=== PATIENT | male | born 1965 | race Caucasian/White ===

== ENCOUNTER 2021-02-17 11:21 | Outpatient (REF) | payer OTHER, SELFPAY ==
[2021-02-17 12:06] LABS: MANUAL DIFF FLAG NO
[2021-02-17 12:14] LABS: Basophils Percent Auto 0.5 % (0-2); Eosinophils Absolute Auto 0.1 X10*3/uL (0.0-0.4); Eosinophils Percent Auto 1.6 % (0-4); Hematocrit 49.3 % (42-52); Hemoglobin 16.2 g/dl (14.0-18.0); Imm Gran Abs Auto 0.03 X10*3/uL (0.00-0.03); Imm Gran Pct Auto 0.4 % (0.0-0.4); Lymphocytes Absolute Auto 0.5 X10*3/uL (1.2-4.9); Lymphocytes Percent Auto 5.5 % (20-40); Mean Corpuscular HGB Conc 32.9 g/dl (31.0-36.0); Mean Corpuscular Hemoglobin 32.1 pg (27.0-33.0); Mean Corpuscular Volume 97.8 fL (80-98); Mean Platelet Volume 10.8 fL (9.4-12.4); Monocytes Absolute Auto 0.5 X10*3/uL (0.1-1.2); Monocytes Percent Auto 5.8 % (2-11); Neutrophils Absolute Auto 7.3 X10*3/uL (2.0-8.3); Neutrophils Percent Auto 86.2 % (45-73); Platelet Count 180 X10*3/uL (160-400); Red Blood Count 5.04 X10*6/uL (4.60-5.80); Red Cell Distribution Width 14.1 % (11.0-16.0); White Blood Count 8.5 X10*3/uL (4.8-10.8)
[2021-02-17 12:59] LABS: Alanine Aminotransferase 34 U/L (0-40); Albumin Level 4.3 g/dL (3.5-5.0); Alkaline Phosphatase 53 U/L (39-117); Anion Gap 13 (12-20); Aspartate Amino Transferase 28 U/L (5-37); Bilirubin Total 0.7 mg/dL (0.0-1.0); Blood Urea Nitrogen 23 mg/dL (9-16); Calcium 9.7 mg/dL (8.4-10.2); Carbon Dioxide 26 mmol/L (22-29); Chloride 104 mmol/L (96-108); Cholesterol 226 mg/dL; Estimated Glomerular Filt Rate 51; Glucose Fasting 136 mg/dL (60-99); HDL Cholesterol 38 mg/dL; Potassium 5.1 mmol/L (3.3-5.1); Sodium 138 mmol/L (135-145); Total Protein 6.6 g/dL (6.5-8.0); Triglycerides 668 mg/dL
[2021-02-17 16:06] LABS: TSH reflex Free T4 0.43 uIU/mL (0.32-4.0); Vitamin D 25-OH Total 22.4 ng/mL (>30)
[2021-02-17 20:51] LABS: Prostate Specific Antigen 0.49 ng/mL (<0.05-4.0)
== END 2021-02-17 11:22 | disposition home or self-care (01) ==
LOC: HO.LAB 11:21
PROVIDERS: PCP Internal Medicine; Visit Provider Internal Medicine
DX: Z00.00 Encounter for general adult medical examination without abnormal findings (principal); Z12.5 Encounter for screening for malignant neoplasm of prostate; I13.0 Hypertensive heart and chronic kidney disease with heart failure and stage 1 through stage 4 chronic kidney disease, or unspecified chronic kidney disease; N18.30 Chronic kidney disease, stage 3 unspecified; I50.9 Heart failure, unspecified; E78.00 Pure hypercholesterolemia, unspecified; E66.9 Obesity, unspecified; E55.9 Vitamin D deficiency, unspecified
CPT/HCPCS: 36415; 80053; 80061; 82306; 84153; 84443; 85025

== ENCOUNTER 2021-07-12 14:35 | Outpatient (REF) | payer OTHER, SELFPAY ==
--- NOTE | ~2021-07-12 | US_ITS ---
EXAMINATION: US VENOUS ULTRASOUND WITH DOPPLER LOWER EXTREMITY, RIGHT CLINICAL INFORMATION: Right leg swelling and redness. COMPARISON: Ultrasound bilateral lower extremity 06/12/2015. TECHNIQUE: Ultrasound of the deep veins is performed from the hip to the calf with compression sonography and color and pulse Doppler assessment. Spectral analysis with color-flow imaging is performed. FINDINGS: There is echogenic chronic thrombus in the right superficial femoral vein distal segment with peripheral color flow seen. The findings are suggestive of chronic DVT. The popliteal vein, posterior tibial and peroneal veins are patent. There is no significant popliteal fossa cyst. If the patient's symptoms persist, followup ultrasound in 5 days 7 days might be of value to exclude proximal propagation from a non-visualized calf vein. US/US venous duplex LE RT IMPRESSION: Chronic DVT right superficial femoral vein distal segment. Patient was apparently treated for DVT 1 year ago and is of blood thinners. Rest of the right lower extremity veins are patent.
== END 2021-07-12 14:36 | disposition home or self-care (01) ==
LOC: HO.US 14:35
PROVIDERS: PCP Internal Medicine; Visit Provider Nurse Practitioner Acute Care
DX: M79.89 Other specified soft tissue disorders (principal)
CPT/HCPCS: 93971

== ENCOUNTER 2023-04-14 09:29 | Outpatient (AMB) | payer OTHER, SELFPAY ==
[2023-04-14 09:31] VITALS: BP 118/70; PULSE 73; O2SAT 99; BMI 31.5
--- NOTE | 2023-04-14 09:31 | MHC.PC.OV ---
Vital Signs 04/14/23 09:31 Height 6 ft Weight 232 lb 6 oz BMI 31.5 BP 118/70 Blood Pressure Location Lt brachial Position Sitting Pulse 73 Pulse Source Pulse Oximeter Pulse Oximetry (%) 99 Oxygen Delivery Method Room Air Intake Visit Reasons: discuss medication Inspector Boiler Required: No Accompanied by: Self / Same As Patient Allergies No Known Allergies Allergy (Verified 04/14/23 10:28) Medication List - Last Reconciled 04/14/23 by Ming Hawkins MD alendronate 70 mg PO QWEEK apixaban 5 mg PO BID 30 days atorvastatin 10 mg PO DAILY 90 days calcium carbonate 1,000 mg PO DAILY cyclobenzaprine 10 mg PO BEDTIME doxycycline hyclate 100 mg PO BID empagliflozin (Jardiance) 10 mg PO DAILY empagliflozin (Jardiance) 10 mg PO DAILY folic acid 1 mg PO DAILY gabapentin ER 1,800 mg PO BEDTIME lorazepam 1 mg (2 x 0.5 mg) PO TID PRN 15 days methotrexate sodium 20 mg PO QWEEK metoprolol succinate ER 25 mg PO DAILY oxycodone 5 mg PO TID PRN pantoprazole 40 mg PO DAILY prednisone 10 mg PO DAILY spironolactone 25 mg PO DAILY tocilizumab mg subcut tocilizumab (Actemra) 162 mg subcut QWEEK tramadol 50 mg PO Q6H PRN Tobacco use date assessed: 04/14/23 Dental Screening Dental Screen Date: 04/14/23 Did you have a dental visit in the last 12 months?: No Did you have a dental problem in the last 6 months where you did not have access to dental care?: No Was dental information given to patient?: Patient has dentist HPI discuss medication HPI Details Patient comes in today for his follow up visit - was last seen in February 2022 States that he had an appointment scheduled to see me last month but he was called up and notified that I was not in the office then and he had to reschedule his appt; patient also missed his appt back in June 2022 and did not get rescheduled until recently Thinks that he tweaked his lower back a couple of months ago and was experiencing increased pain over his lower back that he thinks was due to a pulled muscle States that his lower back symptoms gradually subsided over a month but then he thinks that he may have hurt his lower back again recently while playing golf as he is still experiencing on and off lower back pain and spasms Notes that his left thigh and proximal leg feels numb at times lately, mostly on the lateral side; he has also noticed some burning sensation over the medial side of his thigh recently and that the symptoms seem to come on more often with prolonged standing Has noticed that they gradually subside when he sits down and keep his leg elevated for a while States that he has been having trouble getting his Eliquis and Lorazepam refilled lately - is not sure why he is having problems getting his Eliquis but was told by his pharmacy that his Lorazepam 1 mg has been back-ordered for a while now and if he wants to get it refilled, he has to talk to his PCP about getting this written differently Relates that he was also taken off his Torsemide by his electrical systems drafter a few months ago and started on Jardiance and states that he has been doing much better since and his chronic lower extremity swelling have also improved significantly lately He denies any headaches or dizziness Denies any chest pains, no SOB No nausea/vomiting, no abdominal pain No change in bowel habits noted States that he had some labs done (ordered by his web production manager) a few days ago COUNTS INCLUDE 234 BEDS AT [facility] Medical History Anxiety Benign essential hypertension Chronic kidney disease (CKD), stage III (moderate) Congestive heart failure (CHF) COPD (chronic obstructive pulmonary disease) Deep vein thrombosis (DVT) of right lower extremity GERD without esophagitis Lumbar degenerative disc disease Mixed hyperlipidemia Obesity (BMI 30-39.9) Pneumonia Pure hypercholesterolemia Rheumatoid arthritis Surgical History History of lumbar fusion History of pericardiectomy History of surgery on arm History of total hip arthroplasty History of vasectomy Family History Father No problems noted. Mother Diabetes Rheumatoid arthritis Other Mental health problem Social History Housing: House Alcohol intake: current Alcohol intake frequency: holidays/special occasions only Alcohol type: beer Patient Tobacco Use Status: Former Tobacco user Quit Date: July 05, 2020 Tobacco use type: Cigarette e-Cigarette/Vaping Use: Never Used Second Hand Smoke Exposure: No service: No Current occupational status: disabled Cognitive needs: Yes (cane) Hearing needs: No Vision needs: Yes (Reading glasses) Questionnaire PHQ-9 Over the last 2 weeks, how often have you been bothered by any of the following problems? 1. Little interest or pleasure in doing things: not at all 2. Feeling down, depressed, or hopeless: not at all 3. Trouble falling or staying asleep, or sleeping too much: not at all 4. Feeling tired or having little energy: not at all 5. Poor appetite or overeating: not at all 6. Feeling bad about yourself - or that you are a failure or have let yourself or your family down: not at all 7. Trouble concentrating on things, such as reading the newspaper or watching television: not at all 8. Moving or speaking so slowly that other people could have noticed. Or the opposite - being so fidgety or restless that you have been moving around a lot more than usual: not at all 9. Thoughts that you would be better off or of hurting yourself in some way: not at all Total score: 0 Depression Screening Interpretation: Negative 26056 - PHQ-9 Billing: Yes Source: Developed by Drs. Hector Beatty, Xin Valencia, Vik Fabian and colleagues, with an educational homa from [employer]. Thrive Questionnaire Date Thrive assessed: 04/14/23 I am a: Patient What is your living situation today?: I have a steady place to live Within the past 12 months, did the food you bought not last and you didn't have the money to get more?: Never true Within the past 12 months, did you worry whether your food would run out before you got money to buy more?: Never true Do you have trouble paying for medicines?: No Do you have trouble getting transportation to medical appointments?: No Do you have trouble paying your heating and electricity bill?: No Do you have trouble taking care of your child, family member or friend?: No Do you have trouble with day-to-day activities such as bathing, preparing meals, shopping, managing finances, etc.?: No Are you currently unemployed and looking for a job?: No Are you interested in more education?: No Please select the resources that you would like help with: None Currently or been in a relationship where the following occur: no concerns reported AUDIT C Alcohol Use Questionnaire (AUDIT-C) 1. How often do you have a drink containing alcohol?: Monthly or less 2. How many drinks containing alcohol do you have on a typical day when you are drinking?: 1 or 2 3. How often do you have six or more drinks on one occasion?: Never Total Score: 1 Score Reviewed/Action Taken: Yes RONEN-7 AMB Questionnaire RONEN-7 Date RONEN - 7 assessed: 04/14/23 Feeling nervous, anxious, or on edge: 0 = Not at all Not being able to stop or control worryin = Not at all Worrying too much about different things: 0 = Not at all Trouble relaxin = Not at all Being so restless that it is hard to sit still: 0 = Not at all Becoming easily annoyed or irritable: 0 = Not at all Feeling afraid as if something awful might happen: 0 = Not at all Total RONEN-7 score (0-4 normal; 5-9 mild; 10-14 moderate; 15-21 severe): 0 Source: Developed by Drs. Hector Beatty, Xin Valencia, Vik Fabian and colleagues, with an educational homa from [employer]. Review of Systems Const Denies chills, Denies fatigue, Denies fever(s) and Denies headache(s) ENT Denies dysphagia, Denies dizziness, Denies otalgia, Denies headache(s), Denies neck pain, Denies odynophagia and Denies sore throat Card Denies chest pain, Denies palpitations and Denies dyspnea Resp Denies cough, Denies dyspnea and Denies wheezing GI Denies abdominal pain, Denies constipation, Denies dysphagia, Denies heartburn, Denies diarrhea, Denies nausea, Denies odynophagia and Denies vomiting Denies dysuria, Denies nocturia and Denies urinary frequency Musc Reports back pain (on and off, over the lower back lately), Denies arthralgias, Denies joint swelling, Denies muscle weakness, Denies neck pain and Reports tingling (over the left thigh and proximal left leg - see HPI) Skin/Breast Denies lesions, Denies rash, Denies sores, Denies unusual bruising and Denies wounds (previous right lower leg wounds have healed up completely) Neuro Denies dizziness, Denies headache(s) and Reports tingling (over the left thigh and proximal left leg - see HPI) Endo Denies fatigue and Denies palpitations Aller/Immun Denies wheezing Physical exam (Primary Care) Vital Signs: Last Vital Signs Pulse 73 04/14/23 09:31 BP 118/70 04/14/23 09:31 Pulse Ox 99 04/14/23 09:31 Oxygen Delivery Method Room Air 04/14/23 09:31 BMI result Body Mass Index 31.5 Tobacco/Smoking Status: Tobacco use Status Tobacco use date assessed 04/14/23 04/14/23 09:33 Patient Tobacco Use Status Former Tobacco user 04/14/23 09:33 Tobacco use type Cigarette 04/14/23 09:33 e-Cigarette/Vaping Use Never Used 04/14/23 09:33 PHQ-9: PHQ-9 Score PHQ-9: Total score 0 04/14/23 09:52 Depression Screening Interpretation: Negative Thrive Assessment: Date of Thrive Assessment Date Thrive assessed 04/14/23 04/14/23 09:33 Currently or been in a relationship where the following occur: no concerns reported Const General: no acute distress and alert HENMT Ears: TM's normal bilaterally and EAC's normal Throat: Yes posterior oropharynx normal and Yes tonsils normal (no TP congestion) Neck Neck: Yes no lymphadenopathy and Yes supple Thyroid: Thyroid normal Resp Auscultation: clear to auscultation bilaterally, no rales and no wheezes Cardio Rate: regular rate Rhythm: regular rhythm Heart sounds: no murmurs GI Palpation (GI): Soft to palpation and nontender Auscultation: normal bowel sounds Back/Spine/Pelvis Thoracic/Lumbar Spine: paraspinal muscle tenderness on the left in the mid lumbar and in the lower lumbar Skin Lesions: no lesions Rashes: no rashes Extrem General: Yes no clubbing, cyanosis or edema Assessment and Plan Assessment & Plan (1) Mixed hyperlipidemia: Code(s): E78.2 - Mixed hyperlipidemia Plan: Results of his labs done at [facility] a few days ago reviewed and discussed with patient but advised that these did not include his cholesterol levels He is reminded again that his serum triglyceride level on his labs done back in January 2021 was very high at over 650 mg/dl and he has not had the opportunity to get this rechecked yet Will have him try and get his fasting lipids and a few other labs rechecked OLY Reinforced low cholesterol diet Continue Atorvastatin 10 mg QD for now (2) Benign essential hypertension: Code(s): I10 - Essential (primary) hypertension Plan: Reinforced low sodium diet Continue Metoprolol ER 25 mg QD (3) Congestive heart failure (CHF): Comment: 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 Code(s): I50.9 - Heart failure, unspecified Qualifiers: Heart failure type: unspecified Heart failure chronicity: chronic Qualified Code(s): I50.9 - Heart failure, unspecified Plan: He used to take Torsemide 20 mg QD but states that he was taken off this by cardiology a few months ago and started on Jardiance 10 mg QD instead and he has been doing a lot better since Reinforced fluid restriction Follow up with cardiology as scheduled (4) COPD (chronic obstructive pulmonary disease): Code(s): J44.9 - Chronic obstructive pulmonary disease, unspecified Qualifiers: COPD type: unspecified COPD Qualified Code(s): J44.9 - Chronic obstructive pulmonary disease, unspecified Plan: Stable - continue Albuterol HFA 2 puffs 4 times a day as needed (5) Rheumatoid arthritis: Code(s): M06.9 - Rheumatoid arthritis, unspecified Qualifiers: Rheumatoid arthritis location: unspecified site Rheumatoid factor presence: with rheumatoid factor Qualified Code(s): M05.9 - Rheumatoid arthritis with rheumatoid factor, unspecified Plan: Continue Actemra 162 mg/0.9 ml SQ once a week, Methotrexate 2.5 mg 8 tablets once a week and Prednisone 10 mg QD Follow up with rheumatology as scheduled - goes to [facility] [place] Continue Gabapentin ER 1800 mg Q HS, Tramadol 50 mg q 6 hours PRN and Cyclobenzaprine 10 mg Q HS for pain (6) Lumbar degenerative disc disease: Code(s): M51.36 - Other intervertebral disc degeneration, lumbar region Plan: Follow up with [facility] as scheduled States that he's had a couple of injections into his lower back over the past year or so but the injections have not helped at all More recently, thinks that he may have strained his lower back while playing golf Have advised patient to call if his low back pain continues to get worse (7) Deep vein thrombosis (DVT) of right lower extremity: Code(s): I82.401 - Acute embolism and thrombosis of unspecified deep veins of right lower extremity Qualifiers: Affected thrombotic vein of extremity: unspecified vein of extremity Chronicity: acute Qualified Code(s): I82.401 - Acute embolism and thrombosis of unspecified deep veins of right lower extremity Plan: Was previously taken OFF Eliquis after 6 months of Rx last year but his DVT has since recurred and he was started back on Eliquis 5 mg BID indefinitiely although he has been having problems getting this refilled at his pharmacy lately, for unclear reasons Will send his Rx in electronically - patient instructed to let us know OLY if he still has trouble getting it as his insurance may be requesting for a PA again to be redone Follow up with hematology (Dr. Ramos) at [facility] as scheduled (8) Chronic kidney disease (CKD), stage III (moderate): Code(s): N18.30 - Chronic kidney disease, stage 3 unspecified Qualifiers: Chronic kidney disease stage 3 subtype: unspecified whether 3a or 3b Qualified Code(s): N18.30 - Chronic kidney disease, stage 3 unspecified Plan: Stable - follow up with nephrology as scheduled Was started on Jardiance by cardiology a few months ago, which should also help with patient's renal function (9) GERD without esophagitis: Code(s): K21.9 - Gastro-esophageal reflux disease without esophagitis Plan: Dietary restrictions reinforced Continue Pantoprazole 40 mg QD (10) Anxiety: Code(s): F41.9 - Anxiety disorder, unspecified Plan: Continue Lorazepam 1 mg TID PRN - will try to send in Rx for 0.5 mg to take 2 tablets TID PRN until his 1 mg tablets are back in stock (11) Obesity (BMI 30-39.9): Code(s): E66.9 - Obesity, unspecified Plan: Reinforced diet/exercise as tolerated/lose weight although his activity tolerance is limited due to his multiple comorbidities States that he has been able to lose a lot of weight since he was seen last year Plan Follow up in August 2023 Orders: Orders Comprehensive [place]. Panel Fast Today E78.00 - Pure hypercholesterolemia, unspecified Lipid Panel Today E78.00 - Pure hypercholesterolemia, unspecified TSH reflex Free T4 Today E78.00 - Pure hypercholesterolemia, unspecified Vitamin D 25-OH Total Today E55.9 - Vitamin D deficiency, unspecified UA CC w/rflx Micro + Cult Today R30.0 - Dysuria Medications: Changed From apixaban 5 mg PO BID 60 tabs 0RF To apixaban 5 mg PO BID 30 days 60 tabs 5RF From lorazepam take ONLY NEEDED 1 mg PO TID 30 days PRN 90 tabs 0RF anxiety To lorazepam take ONLY NEEDED 1 mg (2 x 0.5 mg) PO TID 15 days PRN 90 tabs 0RF anxiety Coding Level of Care Code Est Pt Level 4 (23506) Diagnoses Mixed hyperlipidemia E78.2 Benign essential hypertension I10 Congestive heart failure (CHF) I50.9 Heart failure type: unspecified Heart failure chronicity: chronic COPD (chronic obstructive pulmonary disease) J44.9 COPD type: unspecified COPD Rheumatoid arthritis M05.9 Rheumatoid arthritis location: unspecified site Rheumatoid factor presence: with rheumatoid factor Lumbar degenerative disc disease M51.36 Deep vein thrombosis (DVT) of right lower extremity I82.401 Affected thrombotic vein of extremity: unspecified vein of extremity Chronicity: acute Chronic kidney disease (CKD), stage III (moderate) N18.30 Chronic kidney disease stage 3 subtype: unspecified whether 3a or 3b GERD without esophagitis K21.9 Anxiety F41.9 Obesity (BMI 30-39.9) E66.9
== END 2023-04-14 10:31 | disposition home or self-care (01) ==
PROVIDERS: PCP Internal Medicine; Visit Provider Internal Medicine
DX: I13.0 Hypertensive heart and chronic kidney disease with heart failure and stage 1 through stage 4 chronic kidney disease, or unspecified chronic kidney disease (principal); J44.9 Chronic obstructive pulmonary disease, unspecified; N18.30 Chronic kidney disease, stage 3 unspecified; I50.9 Heart failure, unspecified; M05.9 Rheumatoid arthritis with rheumatoid factor, unspecified; E78.2 Mixed hyperlipidemia; M51.36 Other intervertebral disc degeneration, lumbar region; I82.401 Acute embolism and thrombosis of unspecified deep veins of right lower extremity; K21.9 Gastro-esophageal reflux disease without esophagitis; F41.9 Anxiety disorder, unspecified; E66.9 Obesity, unspecified
CPT/HCPCS: 99214

== ENCOUNTER 2023-08-07 23:59 | Outpatient (BNV) | payer OTHER, SELFPAY | END 2023-08-08 23:59 | PROVIDERS: PCP Internal Medicine; Visit Provider Internal Medicine | DX: I47.10 Supraventricular tachycardia, unspecified (principal); I50.33 Acute on chronic diastolic (congestive) heart failure | CPT/HCPCS: 99222 ==

== ENCOUNTER 2023-09-12 10:10 | Outpatient (AMB) | payer OTHER, SELFPAY ==
[2023-09-12 10:14] VITALS: BP 112/80; PULSE 59; O2SAT 98; BMI 32.4
--- NOTE | 2023-09-12 10:14 | MHC.PC.OV ---
Vital Signs 09/12/23 10:14 Height 6 ft Weight 239 lb 4 oz BMI 32.4 BP 112/80 Blood Pressure Location Lt brachial Position Sitting Pulse 59 Pulse Source Pulse Oximeter Pulse Oximetry (%) 98 Oxygen Delivery Method Room Air Intake Visit Reasons: pe Rn Critical Care Required: No Accompanied by: Self / Same As Patient Allergies No Known Allergies Allergy (Verified 09/12/23 10:32) Medication List - Last Reconciled 09/12/23 by Ming Hawkins MD amiodarone 200 mg PO DAILY apixaban 5 mg PO BID 30 days atorvastatin 10 mg PO DAILY 90 days calcium carbonate 1,000 mg PO DAILY cholecalciferol (vitamin D3) (Vitamin D3) 25 mcg PO DAILY cyclobenzaprine 10 mg PO BEDTIME empagliflozin (Jardiance) 10 mg PO DAILY folic acid 1 mg PO DAILY gabapentin ER 1,200 mg PO BEDTIME lorazepam 1 mg (2 x 0.5 mg) PO TID PRN 15 days methotrexate sodium 20 mg PO QWEEK metoprolol succinate ER 25 mg PO DAILY pantoprazole 40 mg PO DAILY prednisone 10 mg PO DAILY spironolactone 25 mg PO DAILY tiotropium bromide 2.5 mcg/actuation (Spiriva Respimat) 1 puff inhalation BID tocilizumab (Actemra) 162 mg subcut QWEEK tramadol 50 mg PO Q6H PRN Tobacco use date assessed: 09/12/23 Dental Screening Dental Screen Date: 09/12/23 Did you have a dental visit in the last 12 months?: No Did you have a dental problem in the last 6 months where you did not have access to dental care?: No Was dental information given to patient?: No HPI pe HPI Details Patient comes in today for his annual physical examination States that he feels okay He was admitted to [facility] back in April 2023 for pneumonia and was reportedly diagnosed with atrial flutter / SVT when he developed palpitations / tachycardia while he was in the hospital He was started on Amiodarone, which he is still currently on, and is following up with cardiology regularly for this - states that they are currently still doing further work ups on his regarding this issue He denies any headaches or dizziness Denies any chest pains, no SOB No nausea/vomiting, no abdominal pain No change in bowel habits noted He denies any acute urinary symptoms He has NEVER had a screening colonoscopy done in the past, by choice [facility] Medical History Atrial flutter Mixed hyperlipidemia Lumbar degenerative disc disease Pneumonia Anxiety Pure hypercholesterolemia Benign essential hypertension GERD without esophagitis Congestive heart failure (CHF) COPD (chronic obstructive pulmonary disease) Rheumatoid arthritis Chronic kidney disease (CKD), stage III (moderate) Obesity (BMI 30-39.9) Deep vein thrombosis (DVT) of right lower extremity Surgical History History of surgery on arm History of pericardiectomy History of vasectomy History of lumbar fusion History of total hip arthroplasty Family History Father No problems noted. Mother Diabetes Rheumatoid arthritis Other Mental health problem Social History Housing: House Alcohol intake: current Alcohol intake frequency: holidays/special occasions only Alcohol type: beer Patient Tobacco Use Status: Former Tobacco user Quit Date: July 05, 2020 Tobacco use type: Cigarette e-Cigarette/Vaping Use: Never Used Second Hand Smoke Exposure: No service: No Current occupational status: disabled Cognitive needs: Yes (cane) Hearing needs: No Vision needs: Yes (Reading glasses) Questionnaire PHQ-9 Over the last 2 weeks, how often have you been bothered by any of the following problems? 1. Little interest or pleasure in doing things: not at all 2. Feeling down, depressed, or hopeless: not at all 3. Trouble falling or staying asleep, or sleeping too much: not at all 4. Feeling tired or having little energy: not at all 5. Poor appetite or overeating: not at all 6. Feeling bad about yourself - or that you are a failure or have let yourself or your family down: not at all 7. Trouble concentrating on things, such as reading the newspaper or watching television: not at all 8. Moving or speaking so slowly that other people could have noticed. Or the opposite - being so fidgety or restless that you have been moving around a lot more than usual: not at all 9. Thoughts that you would be better off or of hurting yourself in some way: not at all Total score: 0 Depression Screening Interpretation: Negative Depression Screening Done: Yes 62130 - PHQ-9 Billing: Yes Source: Developed by Drs. Hector Beatty, Xin Valencia, Vik Fbaian and colleagues, with an educational homa from [employer]. Thrive Questionnaire Date Thrive assessed: 09/12/23 I am a: Patient What is your living situation today?: I have a steady place to live Within the past 12 months, did the food you bought not last and you didn't have the money to get more?: Never true Within the past 12 months, did you worry whether your food would run out before you got money to buy more?: Never true Do you have trouble paying for medicines?: No Do you have trouble getting transportation to medical appointments?: No Do you have trouble paying your heating and electricity bill?: No Do you have trouble taking care of your child, family member or friend?: No Do you have trouble with day-to-day activities such as bathing, preparing meals, shopping, managing finances, etc.?: No Are you currently unemployed and looking for a job?: No Are you interested in more education?: No Please select the resources that you would like help with: None Currently or been in a relationship where the following occur: no concerns reported THRIVE Score: 0 AUDIT C Alcohol Use Questionnaire (AUDIT-C) 1. How often do you have a drink containing alcohol?: Monthly or less 2. How many drinks containing alcohol do you have on a typical day when you are drinking?: 1 or 2 3. How often do you have six or more drinks on one occasion?: Never Total Score: 1 Score Reviewed/Action Taken: Yes RONEN-7 AMB Questionnaire RONEN-7 Date RONEN - 7 assessed: 09/12/23 Feeling nervous, anxious, or on edge: 1 = Several days Not being able to stop or control worryin = Several days Worrying too much about different things: 1 = Several days Trouble relaxin = Not at all Being so restless that it is hard to sit still: 0 = Not at all Becoming easily annoyed or irritable: 0 = Not at all Feeling afraid as if something awful might happen: 0 = Not at all Total RONEN-7 score (0-4 normal; 5-9 mild; 10-14 moderate; 15-21 severe): 3 Source: Developed by Drs. Hector Beatty, Xin Valencia, Vik Fabian and colleagues, with an educational homa from [employer]. Review of Systems Const Denies chills, Denies fatigue, Denies fever(s), Denies headache(s), Denies malaise and Denies weakness Eyes Denies blurry vision, Denies change in vision, Denies irritation and Denies itchy eyes ENT Denies dysphagia, Denies dizziness, Denies otalgia, Denies headache(s), Denies nasal congestion, Denies neck pain, Denies odynophagia and Denies sore throat Card Denies chest pain, Denies rapid heart rate, Denies irregular heart rhythm, Denies palpitations and Denies dyspnea Resp Denies chest congestion, Denies cough, Denies dyspnea and Denies wheezing GI Denies abdominal pain, Denies bloating, Denies constipation, Denies dysphagia, Denies heartburn, Denies diarrhea, Denies nausea, Denies odynophagia and Denies vomiting Denies hematuria, Denies difficulty urinating, Denies dysuria, Denies urinary frequency and Denies urinary urgency Musc Denies back pain, Denies arthralgias, Denies joint swelling, Denies muscle weakness and Denies neck pain Skin/Breast Denies change in pigmentation, Denies lesions, Denies rash and Denies unusual bruising Neuro Denies dizziness, Denies headache(s), Denies paresthesias and Denies weakness Endo Denies fatigue and Denies palpitations Aller/Immun Denies itchy eyes and Denies wheezing Physical exam (Primary Care) Vital Signs: Last Vital Signs Pulse 59 09/12/23 10:14 BP 112/80 09/12/23 10:14 Pulse Ox 98 09/12/23 10:14 Oxygen Delivery Method Room Air 09/12/23 10:14 BMI result Body Mass Index 32.4 Tobacco/Smoking Status: Tobacco use Status Tobacco use date assessed 09/12/23 09/12/23 10:21 Patient Tobacco Use Status Former Tobacco user 09/12/23 10:21 Tobacco use type Cigarette 09/12/23 10:21 e-Cigarette/Vaping Use Never Used 09/12/23 10:21 PHQ-9: PHQ-9 Score PHQ-9: Total score 0 09/12/23 10:44 Depression Screening Interpretation: Negative Thrive Assessment: Date of Thrive Assessment Date Thrive assessed 09/12/23 09/12/23 10:21 Currently or been in a relationship where the following occur: no concerns reported Const General: no acute distress, alert and awake Orientation/consciousness: patient oriented x3 HENMT Head: Yes normocephalic and Yes atraumatic Ears: external ears normal, TM's normal bilaterally and EAC's normal General nose exam: No nasal discharge present Face and sinus: Yes normal facial exam and Yes sinuses nontender Teeth and gingiva: dentition normal Throat: Yes posterior oropharynx normal and Yes tonsils normal (no TP congestion) Eyes Eyelids: Yes eyelids normal Conjunctivae: conjunctivae normal Pupils: Equal, round and reactive pupils present EOM: EOMs intact bilaterally Neck Neck: Yes no lymphadenopathy and Yes supple Thyroid: Thyroid normal Resp Auscultation: clear to auscultation bilaterally, no rales and no wheezes Cardio Rate: regular rate Rhythm: regular rhythm Heart sounds: no murmurs GI Palpation (GI): Soft to palpation, nontender and No hepatosplenomegaly present Auscultation: normal bowel sounds General: Yes no CVA tenderness Back/Spine/Pelvis Back: no CVA tenderness Thoracic/Lumbar Spine: thoracic and lumbar spine normal to inspection and lumbar spinal tenderness Skin Lesions: no lesions Rashes: no rashes Neuro General: patient oriented x3, moves all extremities, no focal motor deficits and CN's II-XI intact bilaterally Cranial nerves: Yes Equal, round and reactive pupils present Cognition (Neuro): normal cognition Gait exam (Neuro): Normal gait present Extrem General: Yes no clubbing, cyanosis or edema Assessment and Plan Assessment & Plan (1) Annual physical exam: Code(s): Z00.00 - Encounter for general adult medical examination without abnormal findings Plan: Check labs Patient has never had a screening colonoscopy done (by choice) and he still does not wish to be referred for one BUT agrees to get Cologuard testing done (2) Mixed hyperlipidemia: Code(s): E78.2 - Mixed hyperlipidemia Plan: Patient has not had his cholesterol levels checked in a couple of years now He is reminded again that his serum triglyceride level on his labs done back in January 2021 was very high at over 650 mg/dl and he has not had the opportunity to get this rechecked yet Will have him try and get his fasting lipids and other labs rechecked OLY Reinforced low cholesterol diet Continue Atorvastatin 10 mg QD for now (3) Benign essential hypertension: Code(s): I10 - Essential (primary) hypertension Plan: Reinforced low sodium diet Continue Metoprolol ER 25 mg QD (4) Congestive heart failure (CHF): Comment: 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 Code(s): I50.9 - Heart failure, unspecified Qualifiers: Heart failure type: unspecified Heart failure chronicity: chronic Qualified Code(s): I50.9 - Heart failure, unspecified Plan: He used to take Torsemide 20 mg QD but states that he was taken off this by cardiology last year and was started on Jardiance 10 mg QD instead - feels that he has been doing a lot better since Reinforced fluid restriction Follow up with cardiology as scheduled (5) Atrial flutter: Code(s): I48.92 - Unspecified atrial flutter Qualifiers: Atrial flutter type: unspecified Qualified Code(s): I48.92 - Unspecified atrial flutter Plan: Patient was found to have atrial flutter when he started experiencing recurrent palpitations while he was admitted to [facility] for pneumonia last fall He is currently in sinus rhythm and is presently still undergoing further work ups by cardiology Continue Amiodarone 200 mg QD and Eliquis 5 mg BID for thromboembolism prophylaxis Follow up with cardiology as scheduled (6) COPD (chronic obstructive pulmonary disease): Code(s): J44.9 - Chronic obstructive pulmonary disease, unspecified Qualifiers: COPD type: unspecified COPD Qualified Code(s): J44.9 - Chronic obstructive pulmonary disease, unspecified Plan: Stable Continue Spiriva Respimat 2.5 mcg 1 inhalation BID and Albuterol HFA 2 puffs 4 times a day as needed (7) Rheumatoid arthritis: Code(s): M06.9 - Rheumatoid arthritis, unspecified Qualifiers: Rheumatoid arthritis location: unspecified site Rheumatoid factor presence: with rheumatoid factor Qualified Code(s): M05.9 - Rheumatoid arthritis with rheumatoid factor, unspecified Plan: Continue Actemra 162 mg/0.9 ml SQ once a week, Methotrexate 2.5 mg 8 tablets once a week and Prednisone 10 mg QD Continue Gabapentin ER 1800 mg Q HS, Tramadol 50 mg q 6 hours PRN and Cyclobenzaprine 10 mg Q HS for pain Follow up with rheumatology as scheduled - goes to [facility] [place] (8) Lumbar degenerative disc disease: Code(s): M51.36 - Other intervertebral disc degeneration, lumbar region Plan: Follow up with [facility] as scheduled States that he's had a couple of injections into his lower back over the past year or so but the injections have not helped at all Reinforced activity and weight-lifting restrictions to avoid aggravating his low back symptoms (9) Deep vein thrombosis (DVT) of right lower extremity: Code(s): I82.401 - Acute embolism and thrombosis of unspecified deep veins of right lower extremity Qualifiers: Affected thrombotic vein of extremity: unspecified vein of extremity Chronicity: acute Qualified Code(s): I82.401 - Acute embolism and thrombosis of unspecified deep veins of right lower extremity Plan: Was previously taken OFF Eliquis after 6 months of Rx last year but his DVT has since recurred and he was started back on Eliquis 5 mg BID indefinitiely Follow up with hematology (Dr. Ramos) at [facility] as scheduled (10) Chronic kidney disease (CKD), stage III (moderate): Code(s): N18.30 - Chronic kidney disease, stage 3 unspecified Qualifiers: Chronic kidney disease stage 3 subtype: unspecified whether 3a or 3b Qualified Code(s): N18.30 - Chronic kidney disease, stage 3 unspecified Plan: Stable - follow up with nephrology as scheduled Was started on Jardiance by cardiology last year, which should also help with patient's renal function (11) GERD without esophagitis: Code(s): K21.9 - Gastro-esophageal reflux disease without esophagitis Plan: Dietary restrictions reinforced Continue Pantoprazole 40 mg QD (12) Anxiety: Code(s): F41.9 - Anxiety disorder, unspecified Plan: Continue Lorazepam 1 mg TID PRN (13) Obesity (BMI 30-39.9): Code(s): E66.9 - Obesity, unspecified Plan: Reinforced diet/exercise as tolerated/lose weight although his activity tolerance is limited due to his multiple comorbidities (14) Colon cancer screening: Code(s): Z12.11 - Encounter for screening for malignant neoplasm of colon Plan: He has never had a screening colonoscopy done and continues to decline referral to get one done but agrees to do Cologuard test instead - Cologuard ordered Plan Follow up in 4 months Orders: Orders Comprehensive [place]oody. Panel Fast 09/12/23 E78.00 - Pure hypercholesterolemia, unspecified, Z00.00 - Encounter for general adult medical examination without abnormal findings Lipid Panel 09/12/23 E78.00 - Pure hypercholesterolemia, unspecified, Z00.00 - Encounter for general adult medical examination without abnormal findings Hemoglobin A1c 09/12/23 E11.9 - Type 2 diabetes mellitus without complications, Z00.00 - Encounter for general adult medical examination without abnormal findings Microalbumin, Random (w Creat) 09/12/23 E11.9 - Type 2 diabetes mellitus without complications, Z00.00 - Encounter for general adult medical examination without abnormal findings UA CC w/rflx Micro + Cult 09/12/23 R30.0 - Dysuria, Z00.00 - Encounter for general adult medical examination without abnormal findings Vitamin B12 and Folate 09/12/23 E53.8 - Deficiency of other specified B group vitamins, Z00.00 - Encounter for general adult medical examination without abnormal findings Prostate Specific Antigen Scr 09/12/23 Z00.00 - Encounter for general adult medical examination without abnormal findings Complete Blood Count Auto Diff 09/12/23 D64.9 - Anemia, unspecified, Z00.00 - Encounter for general adult medical examination without abnormal findings TSH reflex Free T4 09/12/23 E78.00 - Pure hypercholesterolemia, unspecified, Z00.00 - Encounter for general adult medical examination without abnormal findings Vitamin D 25-OH Total 09/12/23 E55.9 - Vitamin D deficiency, unspecified, Z00.00 - Encounter for general adult medical examination without abnormal findings Referrals Cologuard Test Z12.11 - Encounter for screening for malignant neoplasm of colon Medications: New amiodarone 200 mg PO DAILY tiotropium bromide 2.5 mcg/actuation (Spiriva Respimat) 1 puff inhalation BID Changed From lorazepam take ONLY NEEDED 1 mg (2 x 0.5 mg) PO TID 15 days PRN 90 tabs 0RF anxiety To lorazepam take ONLY NEEDED 1 mg PO TID PRN 90 tabs 0RF anxiety 30 days Review Patient declined Colonoscopy: 09/12/23 Coding Level of Care Code Est Pt Prev Care 40-64y(42988) Diagnoses Annual physical exam Z00.00 Mixed hyperlipidemia E78.2 Benign essential hypertension I10 Chronic congestive heart failure, unspecified heart failure type I50.9 Heart failure type: unspecified Heart failure chronicity: chronic Atrial flutter, unspecified type I48.92 Atrial flutter type: unspecified Chronic obstructive pulmonary disease, unspecified COPD type J44.9 COPD type: unspecified COPD Rheumatoid arthritis with positive rheumatoid factor, involving unspecified site M05.9 Rheumatoid arthritis location: unspecified site Rheumatoid factor presence: with rheumatoid factor Lumbar degenerative disc disease M51.36 Acute deep vein thrombosis (DVT) of right lower extremity, unspecified vein I82.401 Affected thrombotic vein of extremity: unspecified vein of extremity Chronicity: acute Stage 3 chronic kidney disease, unspecified whether stage 3a or 3b CKD N18.30 Chronic kidney disease stage 3 subtype: unspecified whether 3a or 3b GERD without esophagitis K21.9 Anxiety F41.9 Obesity (BMI 30-39.9) E66.9 Colon cancer screening Z12.11
== END 2023-09-12 10:57 | disposition home or self-care (01) ==
PROVIDERS: PCP Internal Medicine; Visit Provider Internal Medicine
DX: Z00.00 Encounter for general adult medical examination without abnormal findings (principal); I13.0 Hypertensive heart and chronic kidney disease with heart failure and stage 1 through stage 4 chronic kidney disease, or unspecified chronic kidney disease; I50.9 Heart failure, unspecified; N18.30 Chronic kidney disease, stage 3 unspecified; I48.92 Unspecified atrial flutter; J44.9 Chronic obstructive pulmonary disease, unspecified; M05.9 Rheumatoid arthritis with rheumatoid factor, unspecified; I82.401 Acute embolism and thrombosis of unspecified deep veins of right lower extremity; E78.2 Mixed hyperlipidemia; M51.36 Other intervertebral disc degeneration, lumbar region; K21.9 Gastro-esophageal reflux disease without esophagitis; F41.9 Anxiety disorder, unspecified
CPT/HCPCS: 99396

== ENCOUNTER 2024-09-17 12:50 | Outpatient (AMB) | payer OTHER, SELFPAY ==
[2024-09-17 13:24] VITALS: BP 102/80; PULSE 74; O2SAT 96; BMI 29.5
--- NOTE | 2024-09-17 13:24 | A.OFFPC_ITS ---
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: No Accompanied by: Self / Same As Patient Allergies No Known Allergies Allergy (Verified 09/17/24 13:38) Medication List - Last Reconciled 09/17/24 by Ming Hawkins MD amiodarone 200 mg PO DAILY apixaban 5 mg PO BID 30 days atorvastatin 10 mg PO DAILY 90 days calcium carbonate 1,000 mg PO DAILY cholecalciferol (vitamin D3) (Vitamin D3) 25 mcg PO DAILY cyclobenzaprine 10 mg PO BEDTIME doxycycline hyclate 100 mg PO BID 10 days empagliflozin (Jardiance) 10 mg PO DAILY folic acid 1 mg PO DAILY gabapentin ER 1,200 mg PO BEDTIME lorazepam 1 mg PO TID PRN 30 days methotrexate sodium 20 mg PO QWEEK metoprolol succinate ER 25 mg PO DAILY pantoprazole 40 mg PO DAILY prednisone 10 mg PO DAILY spironolactone 25 mg PO DAILY tiotropium bromide 2.5 mcg/actuation (Spiriva Respimat) 1 puff inhalation BID tocilizumab (Actemra) 162 mg subcut QWEEK torsemide 20 mg PO .QOD tramadol 50 mg PO Q6H PRN Tobacco use date assessed: 09/17/24 Dental Screening Dental Screen Date: 09/17/24 Did you have a dental visit in the last 12 months?: Yes Did you have a dental problem in the last 6 months where you did not have access to dental care?: No Was dental information given to patient?: Patient has dentist HPI annual exam HPI Details Patient comes in today for his annual physical examination - he was last seen here a year ago on 09/12/2023 States that he currently has some cysts over his lower abdominal wall that first appeared about 3 weeks ago and that they are still present now He has also noticed some scattered redness and hills over his lower abdomen lately His thinks that he has cellulitis of his lower abdomen and has insisted that patient mention this at his appointment today so we can check him out further Have advised patient that the hills / lesions on his lower abdominal wall are likely due to scratches on his skin from his dogs' nails when they get on top of him States that he just got a new puppy a couple of months ago but he is quite big (a villaseñor doodle) and he does have a habit of letting his dogs run up to him and get on top of him while he is sitting down on his sofa Adds that he has been OFF his Methotrexate and Actemra for about 4 to 5 weeks now States that he came off his meds when he got sick (along with all other family members) with increased cough and congestion that lasted for over 2 weeks - thinks they all caught the flu bug Notes that his respiratory symptoms have all just cleared up about a week or so ago but his noticed the lesions and redness over his lower abdomen then and advised him NOT to go back on his RA meds yet until he is seen by me today States that his joint pains have increased lately since he has been off his medications for his rheumatoid arthritis for a few weeks now States that he feels okay otherwise He denies fever; denies any headaches or dizziness Denies any chest pains, no SOB No nausea/vomiting, no abdominal pain No change in bowel habits noted He denies any acute urinary symptoms He has never had a screening colonoscopy done (by choice) but he had a negative Cologuard test done last year in November 2023 [facility] Medical History (Updated 09/23/24 @ 03:28 by Ming Hawkins MD) Overweight (BMI 25.0-29.9) Atrial flutter Mixed hyperlipidemia Lumbar degenerative disc disease Pneumonia Anxiety Pure hypercholesterolemia Benign essential hypertension GERD without esophagitis Congestive heart failure (CHF) COPD (chronic obstructive pulmonary disease) Rheumatoid arthritis Chronic kidney disease (CKD), stage III (moderate) Obesity (BMI 30-39.9) Deep vein thrombosis (DVT) of right lower extremity Surgical History History of surgery on arm History of pericardiectomy History of vasectomy History of lumbar fusion History of total hip arthroplasty Family History Father No problems noted. Mother Diabetes Rheumatoid arthritis Other Mental health problem Social History Housing: House Alcohol intake: current Alcohol intake frequency: holidays/special occasions only Alcohol type: beer Patient Tobacco Use Status: Former Tobacco user Tobacco use type: Cigarette e-Cigarette/Vaping Use: Never Used Second Hand Smoke Exposure: No service: No Current occupational status: disabled Cognitive needs: Yes (cane) Hearing needs: No Vision needs: Yes (Reading glasses) Questionnaire PHQ-9 Over the last 2 weeks, how often have you been bothered by any of the following problems? 1. Little interest or pleasure in doing things: several days 2. Feeling down, depressed, or hopeless: not at all 3. Trouble falling or staying asleep, or sleeping too much: not at all 4. Feeling tired or having little energy: not at all 5. Poor appetite or overeating: not at all 6. Feeling bad about yourself - or that you are a failure or have let yourself or your family down: not at all 7. Trouble concentrating on things, such as reading the newspaper or watching television: not at all 8. Moving or speaking so slowly that other people could have noticed. Or the opposite - being so fidgety or restless that you have been moving around a lot more than usual: not at all 9. Thoughts that you would be better off or of hurting yourself in some way: not at all Total score: 1 Depression Screening Interpretation: Negative Depression Screening Done: Yes 96158 - PHQ-9 Billing: Yes Source: Developed by Drs. Hector Beatty, Xin Valencia, Vik Fabian and colleagues, with an educational homa from [employer]. Thrive Questionnaire Date Thrive assessed: 09/17/24 I am a: Patient What is your living situation today?: I have a steady place to live Within the past 12 months, did the food you bought not last and you didn't have the money to get more?: Never true Within the past 12 months, did you worry whether your food would run out before you got money to buy more?: Never true Do you have trouble paying for medicines?: No Do you have trouble getting transportation to medical appointments?: No Do you have trouble paying your heating and electricity bill?: No Do you have trouble taking care of your child, family member or friend?: I choose not to answer this question Do you have trouble with day-to-day activities such as bathing, preparing meals, shopping, managing finances, etc.?: No Are you currently unemployed and looking for a job?: I choose not to answer this question Are you interested in more education?: No Please select the resources that you would like help with: None Currently or been in a relationship where the following occur: No concerns reported THRIVE Score: 0 AUDIT C Alcohol Use Questionnaire (AUDIT-C) 1. How often do you have a drink containing alcohol?: Monthly or less 2. How many drinks containing alcohol do you have on a typical day when you are drinking?: 1 or 2 3. How often do you have six or more drinks on one occasion?: Never Total Score: 1 Score Reviewed/Action Taken: Yes RONEN-7 AMB Questionnaire RONEN-7 Date RONEN - 7 assessed: 09/17/24 Feeling nervous, anxious, or on edge: 0 = Not at all Not being able to stop or control worryin = Not at all Worrying too much about different things: 0 = Not at all Trouble relaxin = Not at all Being so restless that it is hard to sit still: 0 = Not at all Becoming easily annoyed or irritable: 0 = Not at all Feeling afraid as if something awful might happen: 0 = Not at all Total RONEN-7 score (0-4 normal; 5-9 mild; 10-14 moderate; 15-21 severe): 0 Source: Developed by Drs. Hector Beatty, Xin Valencia, Vik Fabian and colleagues, with an educational homa from [employer]. Review of Systems Const Denies chills, Denies fatigue, Denies fever(s), Denies headache(s), Denies malaise and Denies weakness Eyes Denies blurry vision, Denies change in vision, Denies irritation and Denies itchy eyes ENT Denies dysphagia, Denies dizziness, Denies otalgia, Denies headache(s), Denies nasal congestion, Denies neck pain, Denies odynophagia and Denies sore throat Card Denies chest pain, Denies rapid heart rate, Denies irregular heart rhythm, Denies palpitations and Reports dyspnea on exertion (mild) Resp Denies chest congestion, Denies cough, Reports dyspnea on exertion (mild) and Denies wheezing GI Denies abdominal pain, Denies bloating, Denies constipation, Denies dysphagia, Denies heartburn, Denies diarrhea, Denies nausea, Denies odynophagia and Denies vomiting Denies hematuria, Denies difficulty urinating, Denies dysuria, Denies urinary frequency and Denies urinary urgency Musc Reports back pain (over the lower back, on and off), Reports arthralgias (involving multiple joints, especially those over his hands and feet/ankles), Denies joint swelling, Denies muscle weakness and Denies neck pain Skin/Breast Details: increased redness diffusely over his lower abdomen, with a few abscess/pustules scattered over the lower abdominal wall Denies rash and Denies unusual bruising Neuro Denies dizziness, Denies headache(s), Denies paresthesias and Denies weakness Endo Denies fatigue and Denies palpitations Aller/Immun Denies itchy eyes and Denies wheezing Physical exam (Primary Care) Vital Signs: Last Vital Signs Pulse 74 09/17/24 13:24 BP 102/80 09/17/24 13:24 Pulse Ox 96 09/17/24 13:24 Oxygen Delivery Method Room Air 09/17/24 13:24 BMI result Body Mass Index 29.5 Tobacco/Smoking Status: Tobacco use Status Tobacco use date assessed 09/17/24 09/17/24 13:27 Patient Tobacco Use Status Former Tobacco user 09/17/24 13:27 Tobacco use type Cigarette 09/17/24 13:27 e-Cigarette/Vaping Use Never Used 09/17/24 13:27 PHQ-9: PHQ-9 Score PHQ-9: Total score 1 09/17/24 13:45 Depression Screening Interpretation: Negative Thrive Assessment: Date of Thrive Assessment Date Thrive assessed 09/17/24 09/17/24 13:27 Currently or been in a relationship where the following occur: No concerns re ported Const General: no acute distress, alert and awake Orientation/consciousness: patient oriented x3 HENMT Head: Yes normocephalic and Yes atraumatic Ears: external ears normal, TM's normal bilaterally and EAC's normal General nose exam: No nasal discharge present Face and sinus: Yes normal facial exam and Yes sinuses nontender Teeth and gingiva: dentition normal Throat: Yes posterior oropharynx normal and Yes tonsils normal (no TP congestion) Eyes Eyelids: Yes eyelids normal Conjunctivae: conjunctivae normal Pupils: Equal, round and reactive pupils present EOM: EOMs intact bilaterally Neck Neck: Yes supple and No lymphadenopathy Thyroid: Thyroid normal Resp Auscultation: clear to auscultation bilaterally, no rales and no wheezes Cardio Rate: regular rate Rhythm: regular rhythm Heart sounds: no murmurs GI Other: (+) increased erythema over the lower abdominal wall, with a few pustular lesions/abscesses scattered over the lower abdominal wall Palpation (GI): Soft to palpation, nontender and No hepatosplenomegaly present Auscultation: normal bowel sounds General: Yes no CVA tenderness Back/Spine/Pelvis Back: no CVA tenderness Thoracic/Lumbar Spine: lumbar spinal tenderness (mild) Skin Lesions: no lesions Rashes: no rashes Neuro General: patient oriented x3, moves all extremities, no focal motor deficits and CN's II-XI intact bilaterally Cranial nerves: Yes Equal, round and reactive pupils present Cognition (Neuro): normal cognition Gait exam (Neuro): Normal gait present Extrem General: Yes no clubbing, cyanosis or edema Coding Level of Care Code Est Pt Prev Care 40-64y(98024) Diagnoses Annual physical exam Z00.00 Abdominal wall cellulitis L03.311 Mixed hyperlipidemia E78.2 Benign essential hypertension I10 Chronic congestive heart failure, unspecified heart failure type I50.9 Heart failure chronicity: chronic Heart failure type: unspecified Atrial flutter, unspecified type I48.92 Atrial flutter type: unspecified Stage 3 chronic kidney disease, unspecified whether stage 3a or 3b CKD N18.30 Chronic kidney disease stage 3 subtype: unspecified whether 3a or 3b Chronic obstructive pulmonary disease, unspecified COPD type J44.9 COPD type: unspecified COPD Rheumatoid arthritis with positive rheumatoid factor, involving unspecified site M05.9 Rheumatoid arthritis location: unspecified site Rheumatoid factor presence: with rheumatoid factor Degeneration of intervertebral disc of lumbar region with discogenic back pain M51.360 Disc-related pain type: discogenic back pain only Acute deep vein thrombosis (DVT) of right lower extremity, unspecified vein I82.401 Affected thrombotic vein of extremity: unspecified vein of extremity Chronicity: acute GERD without esophagitis K21.9 Anxiety F41.9 Overweight (BMI 25.0-29.9) E66.3 Additional Codes PHQ-9 - 55194 - PHQ-9 Billing: Yes ([id number]) Assessment & Plan Assessment & Plan (1) Annual physical exam: Code(s): Z00.00 - Encounter for general adult medical examination without abnormal findings Category: Medical Plan: Check labs He has never had a screening colonoscopy done (by choice) but he had a negative Cologuard test done last year in November 2023 (2) Abdominal wall cellulitis: Code(s): L03.311 - Cellulitis of abdominal wall Category: Medical Plan: Will go ahead and start patient on Doxycycline 100 mg BID x 10 days (3) Mixed hyperlipidemia: Code(s): E78.2 - Mixed hyperlipidemia Category: Medical Plan: Will have patient go and get his labs and fasting lipids rechecked OLY Reinforced low cholesterol diet Continue Atorvastatin 10 mg QD for now (4) Benign essential hypertension: Code(s): I10 - Essential (primary) hypertension Category: Medical Plan: Reinforced low sodium diet Continue Metoprolol ER 25 mg QD (5) Congestive heart failure (CHF): Comment: 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 Code(s): I50.9 - Heart failure, unspecified Category: Medical Qualifiers: Heart failure chronicity: chronic Heart failure type: unspecified Qualified Code(s): I50.9 - Heart failure, unspecified Plan: He used to take Torsemide 20 mg QD but states that he was taken off this by cardiology a couple of years ago and was started on Jardiance 10 mg QD instead - feels that he has been doing a lot better since Reinforced fluid restriction Follow up with cardiology as scheduled (6) Atrial flutter: Code(s): I48.92 - Unspecified atrial flutter Category: Medical Qualifiers: Atrial flutter type: unspecified Qualified Code(s): I48.92 - Unspecified atrial flutter Plan: Patient was found to have atrial flutter when he started experiencing recurrent palpitations while he was admitted to [facility] for pneumonia last fall He is currently in sinus rhythm and is presently still undergoing further work ups by cardiology Continue Amiodarone 200 mg QD and Eliquis 5 mg BID for thromboembolism prophylaxis Follow up with cardiology as scheduled (7) Chronic kidney disease (CKD), stage III (moderate): Code(s): N18.30 - Chronic kidney disease, stage 3 unspecified Category: Medical Qualifiers: Chronic kidney disease stage 3 subtype: unspecified whether 3a or 3b Qualified Code(s): N18.30 - Chronic kidney disease, stage 3 unspecified Plan: Stable - follow up with nephrology as scheduled He was started on Jardiance by cardiology a couple of years ago, which has helped with patient's renal function (8) COPD (chronic obstructive pulmonary disease): Code(s): J44.9 - Chronic obstructive pulmonary disease, unspecified Category: Medical Qualifiers: COPD type: unspecified COPD Qualified Code(s): J44.9 - Chronic obstructive pulmonary disease, unspecified Plan: Stable Continue Spiriva Respimat 2.5 mcg 1 inhalation BID and Albuterol HFA 2 puffs 4 times a day as needed (9) Rheumatoid arthritis: Code(s): M06.9 - Rheumatoid arthritis, unspecified Category: Medical Qualifiers: Rheumatoid arthritis location: unspecified site Rheumatoid factor p resence: with rheumatoid factor Qualified Code(s): M05.9 - Rheumatoid arthritis with rheumatoid factor, unspecified Plan: He was doing well on Actemra 162 mg/0.9 ml SQ once a week, Methotrexate 2.5 mg 8 tablets once a week and Prednisone 10 mg QD but had to stop his medications a few weeks ago when he got sick and has not been able to go back on it yet Continue Gabapentin ER 1800 mg Q HS, Tramadol 50 mg q 6 hours PRN and Cyclobenzaprine 10 mg Q HS for pain Follow up with rheumatology as scheduled - goes [facility] [place] (10) Lumbar degenerative disc disease: Code(s): M51.36 - Other intervertebral disc degeneration, lumbar region Category: Medical Qualifiers: Disc-related pain type: discogenic back pain only Qualified Code(s): M51.360 - Other intervertebral disc degeneration, lumbar region with discogenic back pain only Plan: Follow up with [facility] as scheduled States that he's had a couple of injections into his lower back over the past year or so but the injections have not helped at all Reinforced activity and weight-lifting restrictions to avoid aggravating his low back symptoms (11) Deep vein thrombosis (DVT) of right lower extremity: Code(s): I82.401 - Acute embolism and thrombosis of unspecified deep veins of right lower extremity Category: Medical Qualifiers: Affected thrombotic vein of extremity: unspecified vein of extremity Chronicity: acute Qualified Code(s): I82.401 - Acute embolism and thrombosis of unspecified deep veins of right lower extremity Plan: He was previously taken OFF Eliquis after 6 months of Rx last year but his DVT has since recurred and he was started back on Eliquis 5 mg BID and will be on the Rx indefinitiely Follow up with hematology (Dr. Ramos) at [facility] as scheduled (12) GERD without esophagitis: Code(s): K21.9 - Gastro-esophageal reflux disease without esophagitis Category: Medical Plan: Dietary restrictions reinforced Continue Pantoprazole 40 mg QD (13) Anxiety: Code(s): F41.9 - Anxiety disorder, unspecified Category: Medical Plan: Continue Lorazepam 1 mg TID PRN (14) Overweight (BMI 25.0-29.9): Code(s): E66.3 - Overweight Category: Medical Plan: Patient has been able to lose about 22 pounds since he was last here about a year ago Reinforced diet/exercise as tolerated/lose weight Plan Follow up in 4 months Orders: Orders Comprehensive [place]. Panel Fast 09/17/24 E78.00 - Pure hypercholesterolemia, unspecified UA CC w/rflx Micro + Cult 09/17/24 R30.0 - Dysuria Vitamin D 25-OH Total 09/17/24 E55.9 - Vitamin D deficiency, unspecified Vitamin B12 and Folate 09/17/24 E53.8 - Deficiency of other specified B group vitamins Complete Blood Count Auto Diff 09/17/24 D64.9 - Anemia, unspecified Lipid Panel 09/17/24 E78.00 - Pure hypercholesterolemia, unspecified Hemoglobin A1c 09/17/24 R73.01 - Impaired fasting glucose TSH reflex Free T4 09/17/24 E78.00 - Pure hypercholesterolemia, unspecified Prostate Specific Antigen Scr 09/17/24 Z00.00 - Encounter for general adult medical examination without abnormal findings Medications: New doxycycline hyclate 100 mg PO BID 20 caps 0RF 10 days
--- OUTSIDE RECORDS SUMMARY | 2024-09-17 13:40 | XMS_ITS | Clinical Summary ---
Author Organization [facility] Facility Address [address] [address] Care Team Providers Care Stockroom Supervisor Name Role Phone Ming Hawkins MD Primary Care Provider [phone] Allergies No known active allergies Medications spironolactone (ALDACTONE) 25 MG tablet Take 25 mg by mouth 1 (one) time each day 1 Active Tiotropium [place] Monohydrate (Spiriva Respimat) 2.5 MCG/ACT aerosol solution 2 puffs 1 (one) time each day Active pantoprazole (PROTONIX) 40 MG EC tablet Take 40 mg by mouth 1 (one) time each day 0 Active Oyster Shell Calcium 500 MG tablet Take 2 tablets by mouth 1 (one) time each day 1 Active oxyCODONE (ROXICODONE) 5 MG immediate release tablet 1 Active metoprolol succinate XL (TOPROL-XL) 25 MG 24 hr tablet Take 25 mg by mouth 1 (one) time each day 1 Active LORazepam (ATIVAN) 1 MG tablet TAKE 1 TABLET BY MOUTH 3 TIMES A DAY NEEDED FOR ANXIETY 1 Active folic acid (FOLVITE) 1 MG tablet Take 1,000 mcg by mouth 1 (one) time each day 1 Active cyclobenzaprine (FLEXERIL) 10 MG tablet Take 10 mg by mouth at bed time 1 Active D3-1000 25 MCG (1000 UT) tablet Take 1,000 Units by mouth 1 (one) time each day 1 Active atorvastatin (LIPITOR) 10 MG tablet Take 10 mg by mouth 1 (one) time each day 0 Active calcium carbonate (OS-MARCELLUS) 1250 (500 Ca) MG tablet Take 1 tablet by mouth 2 (two) times a day Active Eliquis 5 MG tablet Take 5 mg by mouth 1 Active acetaminophen (TYLENOL) 500 MG tablet Take 1 tablet by mouth 4 (four) times a day Active albuterol HFA (PROVENTIL HFA;VENTOLIN HFA) 108 (90 Base) MCG/ACT inhaler as directed Active Gralise 600 MG tablet TAKE 3 TABLETS BY MOUTH DAILY WITH EVENING MEAL 2 Active torsemide (DEMADEX) 20 MG tablet MAY TAKE 1 TABLET BY MOUTH NEEDED FOR WEIGHT GAIN, WHEN INSTRUCTED BY CLINIC 2 Active predniSONE (DELTASONE) 10 MG tablet Take 10 mg by mouth 1 (one) time each day 2 Active Tocilizumab (Actemra ACTPen) 162 MG/0.9ML solution auto-injector Inject 162 mg under the skin every 7 (seven) days On a Monday 0 Active methotrexate 2.5 MG tablet Take 20 mg by mouth every 7 (seven) days 2 Active Active Problems Problem Noted Date Diagnosed Date H/O: prolonged corticosteroid therapy 05/23/2022 Chronic obstructive pulmonary disease 11/16/2021 Constrictive pericarditis 11/16/2021 Deep venous thrombosis 11/16/2021 Degeneration of intervertebral disc 11/16/2021 Gastroesophageal reflux disease 11/16/2021 Hypertension 11/16/2021 Acute nontraumatic kidney injury 10/28/2020 Chronic kidney disease stage 3 10/28/2020 Chronic systolic heart failure 10/28/2020 Resolved Problems Problem Noted Date Diagnosed Date Resolved Date 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 Immunizations Name Administration Dates Next Due Influenza TIV (IM) 06/04/2018 Influenza, Unspecified 04/27/2015 Pneumococcal Polysaccharide 07/02/2018, 5 Family History Medical History Relation Comments Diabetes Mother Gout Mother Relation Status Comments Father Alive Mother Social History Tobacco Use Types Packs/Day Years Used Date Smoking Tobacco: Smoker, Current Status Unknown Smokeless Tobacco: Current Alcohol Use Standard Drinks/Week Comments Yes 0 (1 standard drink = 0.6 oz pure alcohol) Alcoholic Drinks/day: Occasional social drink Sex and Gender Information Value Date Recorded Sex Assigned at Not on file Legal Sex Male 7:14 AM EST Gender Identity Not on file Sexual Orientation Not on file Last Filed Vital Signs Vital Sign Reading Time Taken Comments Blood Pressure 134/80 05/24/2022 10:11 AM EDT Pulse 72 05/24/2022 10:11 AM EDT Temperature - - Respiratory Rate - - Oxygen Saturation 96% 05/24/2022 10:11 AM EDT Inhaled Oxygen Concentration - - Weight 110 kg (242 lb 3.2 oz) 05/24/2022 10:11 A M EDT Height 182.9 cm (6') 05/24/2022 10:11 AM EDT Body Mass Index 32.85 05/24/2022 10:11 AM EDT Plan of Treatment Health Maintenance Due Date Last Done Comments Colorectal Cancer Screening: Annual FOBT 2012 Colorectal Cancer Screening: Colonoscopy 2012 Colorectal Cancer Screening: Sigmoidoscopy 2012 Pneumococcal Vaccine: Pediatrics (0 to 5 Years) and At-Risk Patients (6 to 64 Years) (3 of 3 - PCV) 07/02/2019 07/02/2018, 06/26/2015 Influenza Vaccine (#1) 2024 8, 04/27/2015 Hepatitis B Vaccine Aged Out No longe r eligible based on patient's age to complete this topic Insurance [facility] Care Teams Stockroom Supervisor Relationship Specialty Start Date End Date Ming Hawkins MD [address] [place] [address] PCP - General 08/31/20
== END 2024-09-17 14:07 | disposition home or self-care (01) ==
PROVIDERS: PCP Internal Medicine; Visit Provider Internal Medicine
DX: Z00.00 Encounter for general adult medical examination without abnormal findings (principal); I12.9 Hypertensive chronic kidney disease with stage 1 through stage 4 chronic kidney disease, or unspecified chronic kidney disease; I50.9 Heart failure, unspecified; I48.92 Unspecified atrial flutter; N18.30 Chronic kidney disease, stage 3 unspecified; J44.9 Chronic obstructive pulmonary disease, unspecified; M05.9 Rheumatoid arthritis with rheumatoid factor, unspecified; I82.401 Acute embolism and thrombosis of unspecified deep veins of right lower extremity; L03.311 Cellulitis of abdominal wall; E78.2 Mixed hyperlipidemia; M51.360 Other intervertebral disc degeneration, lumbar region with discogenic back pain only; K21.9 Gastro-esophageal reflux disease without esophagitis

== ENCOUNTER → 2024-09-17 12:50 | Outpatient (BNVA) | payer OTHER, SELFPAY | PROVIDERS: PCP Internal Medicine; Visit Provider Internal Medicine | DX: Z00.00 Encounter for general adult medical examination without abnormal findings (principal); L03.311 Cellulitis of abdominal wall; E78.2 Mixed hyperlipidemia; I13.0 Hypertensive heart and chronic kidney disease with heart failure and stage 1 through stage 4 chronic kidney disease, or unspecified chronic kidney disease; N18.30 Chronic kidney disease, stage 3 unspecified; I50.9 Heart failure, unspecified; I48.92 Unspecified atrial flutter; J44.9 Chronic obstructive pulmonary disease, unspecified; M05.9 Rheumatoid arthritis with rheumatoid factor, unspecified; M51.360 Other intervertebral disc degeneration, lumbar region with discogenic back pain only; I82.401 Acute embolism and thrombosis of unspecified deep veins of right lower extremity; K21.9 Gastro-esophageal reflux disease without esophagitis; F41.9 Anxiety disorder, unspecified; E66.3 Overweight; Z79.01 Long term (current) use of anticoagulants; Z79.899 Other long term (current) drug therapy | CPT/HCPCS: 96127 ==

== ENCOUNTER 2024-10-03 10:31 | Outpatient (AMB) | payer OTHER, SELFPAY ==
[2024-10-03 10:52] VITALS: BP 124/80; PULSE 78; O2SAT 98; BMI 28.2
--- NOTE | 2024-10-03 10:52 | A.OFFPC_ITS ---
Vital Signs 10/03/24 10:52 Height 6 ft Weight 208 lb BMI 28.2 BP 124/80 Blood Pressure Location Lt brachial Position Sitting Pulse 78 Pulse Source Pulse Oximeter Pulse Oximetry (%) 98 Oxygen Delivery Method Room Air Intake Visit Reasons: flu/ Video Effects Editor Required: No Accompanied by: Self / Same As Patient Allergies No Known Allergies Allergy (Verified 10/03/24 11:03) Medication List - Last Reconciled 10/03/24 by Ming Hawkins MD amiodarone 200 mg PO DAILY apixaban 5 mg PO BID 30 days atorvastatin 10 mg PO DAILY 90 days calcium carbonate 1,000 mg PO DAILY cholecalciferol (vitamin D3) (Vitamin D3) 25 mcg PO DAILY cyclobenzaprine 10 mg PO BEDTIME empagliflozin (Jardiance) 10 mg PO DAILY folic acid 1 mg PO DAILY gabapentin ER 1,200 mg PO BEDTIME lorazepam 1 mg PO TID PRN 30 days methotrexate sodium 20 mg PO QWEEK metoprolol succinate ER 25 mg PO DAILY pantoprazole 40 mg PO DAILY prednisone 10 mg PO DAILY spironolactone 25 mg PO DAILY tiotropium bromide 2.5 mcg/actuation (Spiriva Respimat) 1 puff inhalation BID tocilizumab (Actemra) 162 mg subcut QWEEK torsemide 20 mg PO .QOD tramadol 50 mg PO Q6H PRN Tobacco use date assessed: 10/03/24 Dental Screening Dental Screen Date: 10/03/24 Did you have a dental visit in the last 12 months?: Yes Did you have a dental problem in the last 6 months where you did not have access to dental care?: No Was dental information given to patient?: Patient has dentist HPI flu/ HPI Details Patient comes in today for his HDF follow up visit He was admitted to [facility] overnight last week after he went to the ER with 5 days duration of generalized weakness, malaise and cough/congestion Work ups done at the ER did not reveal any findings of significant concern other than a positive test for influenza A He just finished his Abx course of Doxycycline at the time - Rx was prescribed for his lower abdominal wall cellulitis, which he states has improved considerably with the Abx - so, per ER, a bacterial penumonia was less likely although they still got chest x-rays done, which came out negative He was noted to have elevated WBC count and glucose level but he is on chronic prednisone Tx daily He was then discharged home with instructions to follow up with his PCP within a week Patient states that he currently still feels very weak overall Still has increased cough/congestion and notes (+) FERNANDEZ and is concerned that he may have an underlying or undiagnosed pneumonia as he feels that his symptoms are a lot worse than they should be He denies any fever or headaches but reports feeling dizzy at times Denies any chest pains No nausea/vomiting, no abdominal pain but states that he has no appetite and has lost almost 10 pounds in the last 2 weeks No change in bowel habits noted [facility] Medical History (Updated 10/03/24 @ 21:29 by Ming Hawkins MD) Overweight (BMI 25.0-29.9) Atrial flutter Mixed hyperlipidemia Lumbar degenerative disc disease Pneumonia Anxiety Pure hypercholesterolemia Benign essential hypertension GERD without esophagitis Congestive heart failure (CHF) COPD (chronic obstructive pulmonary disease) Rheumatoid arthritis Chronic kidney disease (CKD), stage III (moderate) Obesity (BMI 30-39.9) Deep vein thrombosis (DVT) of right lower extremity Surgical History History of surgery on arm History of pericardiectomy History of vasectomy History of lumbar fusion History of total hip arthroplasty Family History Father No problems noted. Mother Diabetes Rheumatoid arthritis Other Mental health problem Social History Housing: House Alcohol intake: current Alcohol intake frequency: holidays/special occasions only Alcohol type: beer Patient Tobacco Use Status: Former Tobacco user Tobacco use type: Cigarette e-Cigarette/Vaping Use: Never Used Second Hand Smoke Exposure: No service: No Current occupational status: disabled Cognitive needs: Yes (cane) Hearing needs: No Vision needs: Yes (Reading glasses) Questionnaire PHQ-9 Over the last 2 weeks, how often have you been bothered by any of the following problems? 1. Little interest or pleasure in doing things: several days 2. Feeling down, depressed, or hopeless: not at all 3. Trouble falling or staying asleep, or sleeping too much: not at all 4. Feeling tired or having little energy: not at all 5. Poor appetite or overeating: not at all 6. Feeling bad about yourself - or that you are a failure or have let yourself or your family down: not at all 7. Trouble concentrating on things, such as reading the newspaper or watching television: not at all 8. Moving or speaking so slowly that other people could have noticed. Or the opposite - being so fidgety or restless that you have been moving around a lot more than usual: not at all 9. Thoughts that you would be better off or of hurting yourself in some way: not at all Total score: 1 Depression Screening Interpretation: Negative Depression Screening Done: Yes 51275 - PHQ-9 Billing: Yes Source: Developed by Drs. Hector Beatty, Xin Valencia, iVk Fabian and colleagues, with an educational homa from [employer]. Thrive Questionnaire Date Thrive assessed: 10/03/24 I am a: Patient What is your living situation today?: I have a steady place to live Within the past 12 months, did the food you bought not last and you didn't have the money to get more?: Never true Within the past 12 months, did you worry whether your food would run out before you got money to buy more?: Never true Do you have trouble paying for medicines?: No Do you have trouble getting transportation to medical appointments?: No Do you have trouble paying your heating and electricity bill?: No Do you have trouble taking care of your child, family member or friend?: I choose not to answer this question Do you have trouble with day-to-day activities such as bathing, preparing meals, shopping, managing finances, etc.?: No Are you currently unemployed and looking for a job?: I choose not to answer this question Are you interested in more education?: No Please select the resources that you would like help with: None Currently or been in a relationship where the following occur: No concerns reported THRIVE Score: 0 AUDIT C Alcohol Use Questionnaire (AUDIT-C) 1. How often do you have a drink containing alcohol?: Monthly or less 2. How many drinks containing alcohol do you have on a typical day when you are drinking?: 1 or 2 3. How often do you have six or more drinks on one occasion?: Never Total Score: 1 Score Reviewed/Action Taken: Yes RONEN-7 AMB Questionnaire RONEN-7 Date RONEN - 7 assessed: 10/03/24 Feeling nervous, anxious, or on edge: 0 = Not at all Not being able to stop or control worryin = Not at all Worrying too much about different things: 0 = Not at all Trouble relaxin = Not at all Being so restless that it is hard to sit still: 0 = Not at all Becoming easily annoyed or irritable: 0 = Not at all Feeling afraid as if something awful might happen: 0 = Not at all Total RONEN-7 score (0-4 normal; 5-9 mild; 10-14 moderate; 15-21 severe): 0 Source: Developed by Drs. Hector Beatty, Xin Valencia, Vik Fabian and colleagues, with an educational homa from [employer]. Review of Systems Const Denies chills, Reports fatigue, Denies fever(s), Denies headache(s), Reports malaise, Reports poor appetite, Reports weakness and Reports weight loss ENT Denies dysphagia, Reports dizziness (at times), Denies otalgia, Denies headache(s), Reports nasal congestion, Denies neck pain, Denies odynophagia and Denies sore throat Card Denies chest pain, Denies rapid heart rate, Denies irregular heart rhythm, Denies palpitations and Reports dyspnea on exertion (increased lately) Resp Reports chest congestion, Reports cough (recurrent), Denies pain with cough, Reports dyspnea on exertion (increased lately) and Reports wheezing (at times) GI Denies abdominal pain, Reports bloating, Denies constipation, Denies dysphagia, Denies heartburn, Denies diarrhea, Denies nausea, Denies odynophagia and Denies vomiting Denies hematuria, Denies difficulty urinating, Denies dysuria, Reports nocturia, Reports urinary frequency and Denies urinary urgency Musc Reports back pain (over the lower back, on and off), Reports arthralgias (involving multiple joints, especially those over his hands and feet/ankles), Denies joint swelling, Reports muscle weakness and Denies neck pain Skin/Breast Details: (+) significant improvement in the erythema and swelling of his lower abdominal skin folds from 2 to 3 weeks ago Denies rash and Denies unusual bruising Neuro Reports dizziness (at times), Denies headache(s), Denies paresthesias and Reports weakness Endo Reports fatigue and Denies palpitations Aller/Immun Reports wheezing (at times) Physical exam (Primary Care) Vital Signs: Last Vital Signs Pulse 78 10/03/24 10:52 BP 124/80 10/03/24 10:52 Pulse Ox 98 10/03/24 10:52 Oxygen Delivery Method Room Air 10/03/24 10:52 BMI result Body Mass Index 28.2 Tobacco/Smoking Status: Tobacco use Status Tobacco use date assessed 10/03/24 10/03/24 10:58 Patient Tobacco Use Status Former Tobacco user 10/03/24 10:58 Tobacco use type Cigarette 10/03/24 10:58 e-Cigarette/Vaping Use Never Used 10/03/24 10:58 PHQ-9: PHQ-9 Score PHQ-9: Total score 1 10/03/24 14:25 Depression Screening Interpretation: Negative Thrive Assessment: Date of Thrive Assessment Date Thrive assessed 10/03/24 10/03/24 10:58 Currently or been in a relationship where the following occur: No concerns reported Const General: no acute distress, alert and tired appearing HENMT Ears: TM's normal bilaterally and EAC's normal Throat: Yes posterior oropharynx normal and Yes tonsils normal (no TP congestion) Neck Neck: Yes supple and No lymphadenopathy Thyroid: Thyroid normal Resp Auscultation: no crackles, no rales, rhonchi (scattered) throughout, no wheezes, diminished lung sounds bilateral and bronchial breath sounds bilateral Cardio Rate: regular rate Rhythm: regular rhythm Heart sounds: no murmurs GI Other: (+) minimal residual erythema over the lower abdominal wall; the previous pustular/vesicular lesions appear dry/crusted and healed Palpation (GI): Soft to palpation and nontender Auscultation: normal bowel sounds General: Yes no CVA tenderness Back/Spine/Pelvis Back: no CVA tenderness Thoracic/Lumbar Spine: lumbar spinal tenderness (mild) Skin Rashes: no rashes Extrem General: Yes no clubbing, cyanosis or edema Coding Level of Care Code Est Pt Level 4 (60995) Diagnoses COPD exacerbation J44.1 Influenza A J10.1 Chronic congestive heart failure, unspecified heart failure type I50.9 Heart failure type: unspecified Heart failure chronicity: chronic Atrial flutter, unspecified type I48.92 Atrial flutter type: unspecified Mixed hyperlipidemia E78.2 Benign essential hypertension I10 Stage 3 chronic kidney disease, unspecified whether stage 3a or 3b CKD N18.30 Chronic kidney disease stage 3 subtype: unspecified whether 3a or 3b Rheumatoid arthritis with positive rheumatoid factor, involving unspecified site M05.9 Rheumatoid arthritis location: unspecified site Rheumatoid factor presence: with rheumatoid factor Degeneration of intervertebral disc of lumbar region with discogenic back pain M51.360 Disc-related pain type: discogenic back pain only Acute deep vein thrombosis (DVT) of right lower extremity, unspecified vein I82.401 Affected thrombotic vein of extremity: unspecified vein of extremity Chronicity: acute GERD without esophagitis K21.9 Anxiety F41.9 Additional Codes PHQ-9 - 69710 - PHQ-9 Billing: Yes ([id number]) Assessment & Plan Assessment & Plan (1) COPD exacerbation: Code(s): J44.1 - Chronic obstructive pulmonary disease with (acute) exacerbation Category: Medical Plan: Patient voiced his concerns that he feels like he may have a pneumonia at present, based on how he feels He had chest x-rays done at the ER at [facility] last week and his x-rays came out normal Will send him again for chest x-rays as well as some labs [facility] for further evaluation - he is advised that we will reach out to him if any of his labs or if his chest x-rays come out with any abnormal results Continue oral Prednisone 10 mg QD, Spiriva Respimat 2.5 mcg 1 inhalation BID and Albuterol HFA 2 inhalations Q 6 hours PRN (2) Influenza A: Code(s): J10.1 - Influenza due to other identified influenza virus with other respiratory manifestations Category: Medical Plan: Patient tested positive for Influenza A at the ER at [facility] last week; was negative for influenza B, RSV and COVID He is instructed to continue symptomatic Tx with OTC Tylenol PRN, and to make sure he stays hydrated but at the same time balance his fluid intake so as not to go into CHF Have explained to patient that due to his comorbidities, the effects of the influenza virus can seem more pronounced and affect him a lot more severely than it would someone with no significant medical issues He is reminded also of the importance of adequate rest and nutrition but advised that he should go back to the ER at any time if he feels that his symptoms of SOB is getting worse (3) Congestive heart failure (CHF): Comment: 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 Code(s): I50.9 - Heart failure, unspecified Category: Medical Qualifiers: Heart failure type: unspecified Heart failure chronicity: chronic Qualified Code(s): I50.9 - Heart failure, unspecified Plan: Patient used to take Torsemide 20 mg QD but was taken off Rx by cardiology a couple of years ago and he was started on Jardiance 10 mg QD instead - feels that he has been doing a lot better since Reinforced fluid restriction Follow up with cardiology as scheduled (4) Atrial flutter: Code(s): I48.92 - Unspecified atrial flutter Category: Medical Qualifiers: Atrial flutter type: unspecified Qualified Code(s): I48.92 - Unspecified atrial flutter Plan: Patient was found to have atrial flutter when he started experiencing recurrent palpitations while he was admitted to [facility] for pneumonia last fall He is currently in sinus rhythm and is presently still undergoing further work ups by cardiology Continue Amiodarone 200 mg QD and Eliquis 5 mg BID for thromboembolism prophylaxis Follow up with cardiology as scheduled (5) Mixed hyperlipidemia: Code(s): E78.2 - Mixed hyperlipidemia Category: Medical Plan: Reinforced low cholesterol diet Continue Atorvastatin 10 mg QD for now (6) Benign essential hypertension: Code(s): I10 - Essential (primary) hypertension Category: Medical Plan: Reinforced low sodium diet Continue Metoprolol ER 25 mg QD (7) Chronic kidney disease (CKD), stage III (moderate): Code(s): N18.30 - Chronic kidney disease, stage 3 unspecified Category: Medical Qualifiers: Chronic kidney disease stage 3 subtype: unspecified whether 3a or 3b Qualified Code(s): N18.30 - Chronic kidney disease, stage 3 unspecified Plan: Stable Patient was started on Jardiance by cardiology a couple of years ago, which has helped with his renal function Follow up with nephrology as scheduled (8) Rheumatoid arthritis: Code(s): M06.9 - Rheumatoid arthritis, unspecified Category: Medical Qualifiers: Rheumatoid arthritis location: unspecified site Rheumatoid factor presence: with rheumatoid factor Qualified Code(s): M05.9 - Rheumatoid arthritis with rheumatoid factor, unspecified Plan: He was doing well on Actemra 162 mg/0.9 ml SQ once a week, Methotrexate 2.5 mg 8 tablets once a week and Prednisone 10 mg QD but had to stop his medications a few weeks ago when he got sick and has not been able to go back on it yet Continue Gabapentin ER 1800 mg Q HS, Tramadol 50 mg q 6 hours PRN and Cyclobenzaprine 10 mg Q HS for pain Follow up with rheumatology at [facility] [place] as scheduled (9) Lumbar degenerative disc disease: Code(s): M51.36 - Other intervertebral disc degeneration, lumbar region Category: Medical Qualifiers: Disc-related pain type: discogenic back pain only Qualified Code(s): M51.360 - Other intervertebral disc degeneration, lumbar region with discogenic back pain only Plan: Follow up with [facility] as scheduled States that he's had a couple of injections into his lower back over the past year or so but the injections have not helped at all Reinforced activity and weight-lifting restrictions to avoid aggravating his low back symptoms (10) Deep vein thrombosis (DVT) of right lower extremity: Code(s): I82.401 - Acute embolism and thrombosis of unspecified deep veins of right lower extremity Category: Medical Qualifiers: Affected thrombotic vein of extremity: unspecified vein of extremity Chronicity: acute Qualified Code(s): I82.401 - Acute embolism and thrombosis of unspecified deep veins of right lower extremity Plan: He was previously taken OFF Eliquis after 6 months of Rx last year but his DVT has since recurred and he was started back on Eliquis 5 mg BID and will be on the Rx indefinitiely Follow up with hematology (Dr. Ramos) at [facility] as scheduled (11) GERD without esophagitis: Code(s): K21.9 - Gastro-esophageal reflux disease without esophagitis Category: Medical Plan: Dietary restrictions reinforced Continue Pantoprazole 40 mg QD (12) Anxiety: Code(s): F41.9 - Anxiety disorder, unspecified Category: Medical Plan: Continue Lorazepam 1 mg TID PRN Plan Follow up as scheduled in December 2024 Orders: Orders Complete Blood Count Auto Diff Today D64.9 - Anemia, unspecified, R06.00 - Dyspnea, unspecified Comprehensive Met. Panel Today R06.00 - Dyspnea, unspecified B Type Natriuretic Peptide Today I50.9 - Heart failure, unspecified XR chest 2V Today J98.8 - Other specified respiratory disorders, R06.00 - Dyspnea, unspecified Magnesium Today E83.42 - Hypomagnesemia
--- OUTSIDE RECORDS SUMMARY | 2024-10-03 11:14 | XMS_ITS | Clinical Summary ---
Author Organization [facility] Facility Address [address] [address] Care Team Providers Care Car Repairman Name Role Phone Ming Hawkins MD Primary Care Provider [phone]- [phone] Allergies No known active allergies Medications spironolactone (ALDACTONE) 25 MG tablet Take 25 mg by mouth 1 (one) time each day 1 Active Tiotropium [place] Monohydrate (Spiriva Respimat) 2.5 MCG/ACT aerosol solution [...] patient's age to complete this topic Insurance [facility] Care Teams Car Repairman Relationship Specialty Start Date End Date Ming Hawkins MD [address] [place] [address] PCP - General 08/31/20
== END 2024-10-03 11:21 | disposition home or self-care (01) ==
PROVIDERS: PCP Internal Medicine; Visit Provider Internal Medicine
DX: I11.0 Hypertensive heart disease with heart failure (principal); J44.1 Chronic obstructive pulmonary disease with (acute) exacerbation; I50.9 Heart failure, unspecified; I48.92 Unspecified atrial flutter; N18.30 Chronic kidney disease, stage 3 unspecified; M05.9 Rheumatoid arthritis with rheumatoid factor, unspecified; I82.401 Acute embolism and thrombosis of unspecified deep veins of right lower extremity; E78.2 Mixed hyperlipidemia; J10.1 Influenza due to other identified influenza virus with other respiratory manifestations; M51.360 Other intervertebral disc degeneration, lumbar region with discogenic back pain only; K21.9 Gastro-esophageal reflux disease without esophagitis; F41.9 Anxiety disorder, unspecified

== ENCOUNTER 2024-10-03 10:31 | Outpatient (REF) | payer OTHER, SELFPAY ==
--- NOTE | ~2024-10-03 | XR_ITS ---
EXAMINATION: XR CHEST 2 VIEWS HISTORY: J98.8 - Other specified respiratory disorders COMPARISON: Comparison is made with the prior examination dated 11/26/2015. FINDINGS: PA and lateral views of the chest are submitted. The lungs are expanded and clear. There is no pleural effusion, pneumothorax, or pulmonary vascular congestion. The heart is normal in size. The patient is status post median sternotomy. The bones are intact. XR/XR chest 2V IMPRESSION: No acute cardiopulmonary abnormality. Electronically signed by: Hector Leyva MD 10/03/2024 11:53 AM EST
[2024-10-03 11:38] LABS: MANUAL DIFF FLAG NO
--- OUTSIDE RECORDS SUMMARY | 2024-10-03 12:07 | XMS_ITS | Clinical Summary ---
Author Organization [facility] Facility Address [address] [address] Care Team Providers Care Police Patrol Lieutenant Name Role Phone Ming Hawkins MD Primary Care Provider [phone]- [phone] Allergies No known active allergies Medications spironolactone (ALDACTONE) 25 MG tablet Take 25 mg by mouth 1 (one) time each day 1 Active Tiotropium [place] Monohydrate (Spiriva Respimat) 2.5 MCG/ACT aerosol solution [...] patient's age to complete this topic Insurance [facility] Care Teams Police Patrol Lieutenant Relationship Specialty Start Date End Date Ming Hawkins MD [address] [place] [address] PCP - General 08/31/20
[2024-10-03 12:24] LABS: Basophils Percent Auto 0.2 % (0-2); Eosinophils Percent Auto 0.1 % (0-4); Hemoglobin 16.3 g/dl (14.0-18.0); Imm Gran Abs Auto 0.15 X10*3/uL (0.00-0.03); Imm Gran Pct Auto 1.2 % (0.0-0.4); Lymphocytes Absolute Auto 0.6 X10*3/uL (1.2-4.9); Lymphocytes Percent Auto 4.9 % (20-40); Mean Corpuscular Hemoglobin 29.7 pg (27.0-33.0); Mean Corpuscular Volume 93.1 fL (80.0-98.0); Mean Platelet Volume 10.7 fL (9.4-12.4); Monocytes Absolute Auto 0.5 X10*3/uL (0.1-1.2); Monocytes Percent Auto 4.2 % (2-11); Neutrophils Percent Auto 89.4 % (45-73); Platelet Count 308 X10*3/uL (160-400); Red Blood Count 5.48 X10*6/uL (4.60-5.80); Red Cell Distribution Width 15.9 % (11.0-16.0); White Blood Count 12.3 X10*3/uL (4.8-10.8)
[2024-10-03 12:26] LABS: Appearance Urine Clear; Color Urine Yellow; Glucose Urine UA >=1000 mg/dL (Negative); Leukocyte Esterase Urine Negative (Negative); Nitrite Urine Negative (Negative); PH 5.5 (5.0-9.0); Specific Gravity - Urine >= 1.030 (1.005-1.025); UMIC TRIGGER UACC YES; Urine Blood Negative (Negative); Urine Ketones Trace mg/dL (Negative); Urine Protein Negative (Neg-Trace)
[2024-10-03 12:30] LABS: Estimated Average Glucose 128 mg/dL; Hemoglobin A1C 178.8644 umol/L; Hemoglobin A1c % 6.1 % (<6.0); Total Hemoglobin (HGBA1C) 4168.6908 umol/L
[2024-10-03 12:32] LABS: Bacteria Urine None Seen (None Seen); Hyaline Casts Urine 0-2 /LPF (0-2); RBC Urine 0-2 /HPF (0-2); Squamous Epithelial Cell Urine 0-2 /HPF (0-2); WBC Urine 0-5 /HPF (0-5)
[2024-10-03 12:50] LABS: B Type Natriuretic Peptide 125 pg/mL (<100)
[2024-10-03 12:52] LABS: Alanine Aminotransferase 40 U/L (0-40); Albumin Level 3.8 g/dL (3.5-5.0); Alkaline Phosphatase 60 U/L (39-117); Anion Gap 12 (12-20); Aspartate Amino Transferase 29 U/L (5-37); Bilirubin Total 0.6 mg/dL (0.0-1.0); Blood Urea Nitrogen 16 mg/dL (9-16); Calcium 9.7 mg/dL (8.4-10.2); Carbon Dioxide 28 mmol/L (22-29); Chloride 104 mmol/L (96-108); Cholesterol 133 mg/dL (<200); Estimated Glomerular Filt Rate 50; Glucose Fasting 114 mg/dL (60-99); Glucose Random 114 mg/dL (60-115); HDL Cholesterol 41 mg/dL (>40); LDL Cholesterol Calculated 26 mg/dL (<100); Magnesium 2.3 mg/dL (1.6-2.6); Potassium 5.1 mmol/L (3.3-5.1); Sodium 139 mmol/L (135-145); Total Protein 7.3 g/dL (6.5-8.0); Triglycerides 331 mg/dL (<150)
[2024-10-03 13:08] LABS: TSH reflex Free T4 0.45 uIU/mL (0.32-4.0); Vitamin D 25-OH Total 40.3 ng/mL (>30)
[2024-10-03 13:21] LABS: Folate 17.2 ng/mL (> or = 4.0); Prostate Specific Antigen Scr 0.65 ng/mL (<0.05-4.0); Vitamin B12 438 pg/mL (200-900)
== END 2024-10-03 10:32 | disposition home or self-care (01) ==
LOC: HO.XRAY 10:31
PROVIDERS: PCP Internal Medicine; Visit Provider Internal Medicine
DX: Z00.00 Encounter for general adult medical examination without abnormal findings (principal); J44.1 Chronic obstructive pulmonary disease with (acute) exacerbation; E53.8 Deficiency of other specified B group vitamins; D64.9 Anemia, unspecified; R06.00 Dyspnea, unspecified; E78.00 Pure hypercholesterolemia, unspecified; E83.42 Hypomagnesemia; I13.0 Hypertensive heart and chronic kidney disease with heart failure and stage 1 through stage 4 chronic kidney disease, or unspecified chronic kidney disease; N18.30 Chronic kidney disease, stage 3 unspecified; I50.9 Heart failure, unspecified; R73.01 Impaired fasting glucose; J98.8 Other specified respiratory disorders; Z12.5 Encounter for screening for malignant neoplasm of prostate; J10.1 Influenza due to other identified influenza virus with other respiratory manifestations; I82.401 Acute embolism and thrombosis of unspecified deep veins of right lower extremity; M51.360 Other intervertebral disc degeneration, lumbar region with discogenic back pain only; K21.9 Gastro-esophageal reflux disease without esophagitis; F41.9 Anxiety disorder, unspecified
CPT/HCPCS: 36415; 71046; 80053; 80061; 81001; 82306; 82607; 82746; 83036; 83735; 83880; 84153; 84443; 85025; 96127

== ENCOUNTER → 2024-10-03 11:43 | Outpatient (BNV) | payer OTHER, SELFPAY | PROVIDERS: PCP Internal Medicine; Visit Provider Radiology Diagnostic Radiology | DX: J98.8 Other specified respiratory disorders (principal) | CPT/HCPCS: 71046 ==

== ENCOUNTER 2025-05-06 14:24 | Outpatient (AMB) | payer OTHER, SELFPAY ==
--- NOTE | 2025-05-06 14:26 | MHC.PC.OV ---
Vital Signs 05/06/25 14:27 Height 6 ft Weight 220 lb BMI 29.8 BP 128/86 Blood Pressure Location Lt brachial Position Sitting Pulse 63 Pulse Source Pulse Oximeter Pulse Oximetry (%) 96 Oxygen Delivery Method Room Air Intake Visit Reasons: 4mt f/u Financial Underwriter Required: No Accompanied by: Self / Same As Patient Allergies No Known Allergies Allergy (Verified 05/06/25 15:11) Medication List - Last Reconciled 05/06/25 by Ming Hawkins MD amiodarone 200 mg PO DAILY apixaban 5 mg PO BID 30 days atorvastatin 10 mg PO DAILY 90 days calcium carbonate 1,000 mg PO DAILY cholecalciferol (vitamin D3) (Vitamin D3) 25 mcg PO DAILY cyclobenzaprine 10 mg PO BEDTIME empagliflozin (Jardiance) 10 mg PO DAILY folic acid 1 mg PO DAILY gabapentin ER 1,200 mg PO BEDTIME lorazepam 1 mg PO TID PRN 30 days metoprolol succinate ER 25 mg PO DAILY pantoprazole 40 mg PO DAILY prednisone 20 mg PO DAILY spironolactone 25 mg PO DAILY tiotropium bromide 2.5 mcg/actuation (Spiriva Respimat) 1 puff inhalation BID tocilizumab (Actemra) 162 mg subcut QWEEK torsemide 20 mg PO .QOD tramadol 50 mg PO Q6H PRN Tobacco use date assessed: 05/06/25 Dental Screening Dental Screen Date: 05/06/25 Did you have a dental visit in the last 12 months?: No Did you have a dental problem in the last 6 months where you did not have access to dental care?: No Was dental information given to patient?: No [facility] Medical History Overweight (BMI 25.0-29.9) Atrial flutter Mixed hyperlipidemia Lumbar degenerative disc disease Pneumonia Anxiety Pure hypercholesterolemia Benign essential hypertension GERD without esophagitis Congestive heart failure (CHF) COPD (chronic obstructive pulmonary disease) Rheumatoid arthritis Chronic kidney disease (CKD), stage III (moderate) Obesity (BMI 30-39.9) Deep vein thrombosis (DVT) of right lower extremity Surgical History History of surgery on arm History of pericardiectomy History of vasectomy History of lumbar fusion History of total hip arthroplasty Family History Father No problems noted. Mother Diabetes Rheumatoid arthritis Other Mental health problem Social History Housing: House Alcohol intake: current Alcohol intake frequency: holidays/special occasions only Alcohol type: beer Patient Tobacco Use Status: Former Tobacco user Tobacco use type: Cigarette e-Cigarette/Vaping Use: Never Used Second Hand Smoke Exposure: No service: No Current occupational status: disabled Cognitive needs: Yes (cane) Hearing needs: No Vision needs: Yes (Reading glasses) Questionnaire Thrive Questionnaire Date Thrive assessed: 09/17/24 I am a: Patient What is your living situation today?: I have a steady place to live Within the past 12 months, did the food you bought not last and you didn't have the money to get more?: Never true Within the past 12 months, did you worry whether your food would run out before you got money to buy more?: Never true Do you have trouble paying for medicines?: No Do you have trouble getting transportation to medical appointments?: No Do you have trouble paying your heating and electricity bill?: No Do you have trouble taking care of your child, family member or friend?: I choose not to answer this question Do you have trouble with day-to-day activities such as bathing, preparing meals, shopping, managing finances, etc.?: No Are you currently unemployed and looking for a job?: I choose not to answer this question Are you interested in more education?: No Please select the resources that you would like help with: None Currently or been in a relationship where the following occur: No concerns reported THRIVE Score: 0 AUDIT C Alcohol Use Questionnaire (AUDIT-C) 1. How often do you have a drink containing alcohol?: Monthly or less 2. How many drinks containing alcohol do you have on a typical day when you are drinking?: 1 or 2 3. How often do you have six or more drinks on one occasion?: Never Total Score: 1 Score Reviewed/Action Taken: Yes RONEN-7 AMB Questionnaire RONEN-7 Date RONEN - 7 assessed: 10/03/24 Source: Developed by Drs. Hector L. JaciXin neil, Vik Fabian and colleagues, with an educational homa from [email or web address]. Physical exam (Primary Care) Vital Signs: Last Vital Signs Pulse 63 05/06/25 14:27 BP 128/86 05/06/25 14:27 Pulse Ox 96 05/06/25 14:27 Oxygen Delivery Method Room Air 05/06/25 14:27 BMI result Body Mass Index 29.8 Tobacco/Smoking Status: Tobacco use Status Tobacco use date assessed 05/06/25 05/06/25 14:29 Patient Tobacco Use Status Former Tobacco user 05/06/25 14:29 Tobacco use type Cigarette 05/06/25 14:29 e-Cigarette/Vaping Use Never Used 05/06/25 14:29 Thrive Assessment: Date of Thrive Assessment Date Thrive assessed 09/17/24 05/06/25 14:29 Currently or been in a relationship where the following occur: No concerns reported Results AMB Hemoglobin A1c AMB Hemoglobin A1c 6.1 % Last Edit by FRITZ Saldaña on 05/06/25 15:13 Coding Assessment & Plan Assessment & Plan Orders: Orders AMB Hemoglobin A1c Today Z13.9 - Encounter for screening, unspecified Complete Blood Count Auto Diff 4 Months D64.9 - Anemia, unspecified Comprehensive [place]. Panel Fast 4 Months E78.00 - Pure hypercholesterolemia, unspecified Lipid Panel 4 Months E78.00 - Pure hypercholesterolemia, unspecified UA CC w/rflx Micro + Cult 4 Months R30.0 - Dysuria Hemoglobin A1c 4 Months R73.01 - Impaired fasting glucose TSH reflex Free T4 4 Months E78.00 - Pure hypercholesterolemia, unspecified
[2025-05-06 14:27] VITALS: BP 128/86; PULSE 63; O2SAT 96; BMI 29.8
--- OUTSIDE RECORDS SUMMARY | 2025-05-06 18:08 | XMS_ITS | Clinical Summary ---
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 11/16/202110/2021 Immunizations Immunization Administration Dates Next Due Influenza TIV (IM) [...] Colorectal Cancer Screening: Sigmoidoscopy 2012 Pneumococcal Vaccine: 50+ Years (3 of 3 - PCV) 07/02/2019 07/02/2018, 06/26/2015 Influenza Vaccine (#1) 2025 , 04/27/2015 Pneumococcal Vaccine: Peds ( 0 to 5 Years) and At-Risk Patients (6 to 49 Years) Discontinued 07/02/2018, 06/26/2015 Hepatitis B Vaccine Aged Out No longe r eligible based on patient's age to complete this topic Insurance [facility] Care Teams Candy Dipper Hand Relationship Specialty Start Date End Date Ming Hawkins MD [address] [place] [address] PCP - General 08/31/20
== END 2025-05-06 15:21 | disposition home or self-care (01) ==
LOC: HO.HMCH 14:25
PROVIDERS: PCP Internal Medicine; Visit Provider Internal Medicine
DX: Z13.9 Encounter for screening, unspecified (principal)

== ENCOUNTER → 2025-05-06 14:24 | Outpatient (BNVA) | payer OTHER, SELFPAY | PROVIDERS: PCP Internal Medicine; Visit Provider Internal Medicine | DX: L03.115 Cellulitis of right lower limb (principal); J44.9 Chronic obstructive pulmonary disease, unspecified; I48.92 Unspecified atrial flutter; E78.2 Mixed hyperlipidemia; I13.0 Hypertensive heart and chronic kidney disease with heart failure and stage 1 through stage 4 chronic kidney disease, or unspecified chronic kidney disease; N18.30 Chronic kidney disease, stage 3 unspecified; I50.9 Heart failure, unspecified; R73.01 Impaired fasting glucose; M05.9 Rheumatoid arthritis with rheumatoid factor, unspecified; M51.360 Other intervertebral disc degeneration, lumbar region with discogenic back pain only; I82.401 Acute embolism and thrombosis of unspecified deep veins of right lower extremity; K21.9 Gastro-esophageal reflux disease without esophagitis; F41.9 Anxiety disorder, unspecified | CPT/HCPCS: 83036 ==